=== PATIENT | female | born 1945 | race Caucasian/White ===

== ENCOUNTER → 2016-09-18 | Outpatient (CLI) | payer OTHER | LOC: CIMAGING 09:46 | DX: Z12.31 Encounter for screening mammogram for malignant neoplasm of breast (principal); Z90.11 Acquired absence of right breast and nipple | CPT/HCPCS: G0202-52 ==

== ENCOUNTER 2017-02-20 09:18 | Inpatient (IN) | payer OTHER ==
--- NOTE | 2017-02-14 11:15 | GHP ---
[f rep st] PREOP HISTORY AND PHYSICAL DATE OF ADMISSION: 02/20/2017 DATE OF SURGERY: 02/20/2017 PROBLEM: Left hip arthritis. HISTORY OF PRESENT ILLNESS: The patient is a 71-year-old woman admitted for a left total hip arthrop lasty. Dr. Stephen Fernandes did her right total hip replacement 5 or 10 years ago. She has also had bila teral total knee arthroplasties and bilateral total shoulder arthroplasties. For the past few months , her left hip has become progressively more painful. She is having daily pain and night pain. It i s difficult for her to sleep. She has tried Aleve, but it does not help. Tylenol does not help. Mary Kate castillo cannot take ibuprofen because it upsets her stomach. In 2016, she developed breast cancer on the right side. This was initially treated with a partial ma stectomy. She developed recurrent disease and had to have a full mastectomy, followed by chemotherap y. She continues to be on Herceptin. PAST MEDICAL HISTORY: She is treated for hypertension and hypothyroidism. No history of heart disea se or stents, DVT, or hepatitis. CURRENT MEDICATIONS: Anastrozole, which is an estrogen linn; atenolol 100 mg per day; Lasix 20 mg per day; levothyroxine 100 mcg per day; lisinopril 20 mg per day; metoprolol ER 100 mg per day. DRUG ALLERGIES: Celebrex and Celestone. METAL ALLERGY: None. LATEX ALLERGY: None. SOCIAL HISTORY: The patient is . She does not smoke cigarettes or drink alcohol. She is ret ired. FAMILY HISTORY: Noncontributory. PHYSICAL EXAMINATION: GENERAL: She is an alert, healthy-appearing woman. Height 5 feet 6 inches. Weight 233 pounds. BMI 37.6. EYES: Conjunctivae and sclerae are clear. Pupils are round and react cassandra. She has had cataract surgery, with a lens implant in the right eye. MOUTH: Good oral hygiene. No loose teeth. CHEST: Clear. HEART: Regular rhythm. No murmurs. EXTREMITIES: Pertinent find ings are limited to her left hip. She has full hip extension and 70 degrees of flexion. External ro tation 20 degrees. Internal rotation 0 degrees. Abduction 20 degrees. Hip motion is very painful. She has groin pain. IMAGING STUDIES: Films show a [id number] a right total hip arthroplasty, which looks solid. She has degenerative arthritis of her left hip. She is 2 or 3 mm short on the left. IMPRESSION ON ADMISSION: 1. Left hip degenerative arthritis. Possible avascular necrosis. 2. Status post successful right total hip arthroplasty. 3. Status post bilateral total knee arthroplasties. 4. Status post bilateral total shoulder arthroplasties. 5. History of breast cancer. 6. Treatment for hypertension and hypothyroidism. PLAN: She will undergo a left total hip arthroplasty. The surgery has been described to her, includ ing the risks, complications, expectations, and recovery time. I have talked to her about the risk o f leg length inequality, dislocation, infection, and sciatic nerve injury. All her questions have be en answered, and she consents to surgery. /[id number]/MODL
[~2017-02-20 09:18] MED LIST: POVIDONE-IODINE 20 ML in SODIUM CL IRRIG SOLUTION 500 ML IRR ONE; ROPIVACAINE 0.2% 80 MG, EPINEPHrine 0.2 MG, KETOROLAC TROMETHAMINE 30 MG in BAG 0 ML IU ONE; TRANEXAMIC ACID 2,080 MG in NS 100 ML IV ONE; ceFAZolin 2 GM/DEXTROSE 100 ML IV ONE; ceFAZolin 2 GM/SWFI 2 GM/20 ML SYR IVP ONE
[2017-02-20] MEDS ORDERED: FAMOTIDINE 20 MG TAB PO ONE (09:51)
[2017-02-20] MEDS ORDERED: ACETAMINOPHEN 325 MG TAB PO ONE (09:51)
[2017-02-20] MEDS ORDERED: DEXAMETHASONE 4 MG/ML VIAL IVP ONE (09:51)
[2017-02-20] MEDS ORDERED: LR 1,000 ML IV ONE (09:52)
[2017-02-20] MEDS ORDERED: LIDOCAINE 1% 2 ML INJ ID PRN (09:52)
[2017-02-20] MEDS ORDERED: ceFAZolin 2 GM/SWFI 20 ML SYR IVP ONE (10:30)
--- NOTE | 2017-02-20 11:10 | PDHPUP ---
History & Physical Update H&P update statement: This history and physical update is based on an assessment of the patient which was completed after admission or registration (within 24 hours), but prior to the surgery/procedure. H&P update: H&P reviewed & patient examined, no change in patient's condition since H&P completed
[2017-02-20] MEDS ORDERED: ceFAZolin 1 GM/5 ML SYR ONE (11:22)
[2017-02-20] MEDS ORDERED: BUPIVACAINE 0.25% 30 ML SDV ONE (11:34)
--- NOTE | 2017-02-20 11:43 | PDANEPAE ---
ANE History of Present Illness 71 yo for swetha ANE Past Medical History - Cardiovascular History Hx Hypertension: Yes Hx Arrhythmias: Yes Hx Chest Pain: No Hx Coronary Artery / Peripheral Vascular Disease: No Hx CHF / Valvular Disease: No Hx Palpitations: No Cardiovascular History Comment: SKIPS A BEAT OCCAS. RUNS SLOW HEART RATE. SEEN AT [facility] - Pulmonary History Hx COPD: No Hx Asthma/Reactive Airway Disease: No Hx Recent Upper Respiratory Infection: No Hx Oxygen in Use at Home: No Hx Sleep Apnea: No Sleep Apnea Screening Result - Last Documented: Positive - Neurologic History Hx Cerebrovascular Accident: No Hx Seizures: No Hx Dementia: No - Endocrine History Hx Diabetes: No Endocrine History Comment: HYPOTHYROIDISM - Renal History Hx Renal Disorders: No - Liver History Hx Hepatic Disorders: No Hepatic History Comment: CHOLECYSTECTOMY - Neurological & Psychiatric Hx Hx Neurological and Psychiatric Disorders: No - Cancer History Hx Cancer: Yes Cancer History Comment: R BREAST CA. FINGER & FACE SKIN CA REMOVED - Congenital Disorder History Hx Congenital Disorders: No - GI History Hx Gastrointestinal Disorders: Yes Gastrointestinal History Comment: HX ULCERS FROM NSAIDS. - Other Health History Other Health History: MACULAR DIGENERATION ON RIGHT. MISSING LOWER TOOTH. - Chronic Pain History Chronic Pain: Yes (ARTHRITIS JOINTS & MUSCLE ACHES) - Surgical History Prior Surgeries: EYE SURGERY FOR BUBBLE. DENTAL SURGERIES. 02/21/16 RIGHT MASTECTOMY WITH AXILLARY NODE DISSECTION WITH HAL. R LUMPECTOMY BREAST WITH HAL. HIGINIO SHOULDER REPLACEMENTS. HIGINIO TKA. R SWETHA. ANKLE R SURG. CHOLECYSTECTOMY ANE Review of Systems Review of Systems: - Exercise capacity METS (RN): 4 METS ANE Patient History - Allergies Allergies/Adverse Reactions: hydrocodone bitartrate [From Lortab] Allergy (Severe, Verified 04/09/16 16:09) Other-Enter Comments NSAIDS (Non-Steroidal Anti-Inflamma Allergy (Severe, Verified 04/09/16 16:09) ULCERS betamethasone [From Celestone] Allergy (Verified 04/09/16 16:09) Other-Enter Comments betamethasone sodium phosphate [From Celestone] Allergy (Verified 04/09/16 16:09 ) Other-Enter Comments celecoxib [From Celebrex] Allergy (Verified 04/09/16 16:09) Itching - Home Medications Home medications: home medication list seen and reviewed Home Medications: Levothyroxine [Synthroid 100 mcg (*)] 12/03/09 [Last Taken 04/10/16] Acetaminophen [Tylenol 325mg (*)] 02/21/16 [Last Taken 04/09/16] Herbals/Supplements -Info Only 02/21/16 [Last Taken Unknown] Lisinopril [Zestril 20 mg (*)] 04/09/16 [Last Taken 04/10/16] C/E/Zn/Cu/OM3/DHA/EPA/LUT/ZEAX [Preservision Areds 2 Softgel] 04/11/16 [Last Taken Unknown] Cyanocobalamin [Vitamin B12 (*)] 04/11/16 [Last Taken Unknown] Magnesium Oxide [Magnesium Oxide 400 mg (*)] 04/11/16 [Last Taken Unknown] Vitamin B Complex [B Complex] 04/11/16 [Last Taken Unknown] Anastrozole 02/12/17 [Last Taken Unknown] Herceptin 02/12/17 [Last Taken Unknown] traMADol [Ultram 50 mg (*)] 02/12/17 [Last Taken Unknown] - NPO status NPO Since - Liquids (Date): 02/20/17 NPO Since - Liquids (Time): 08:00 NPO Since - Solids (Date): 02/19/17 NPO Since - Solids (Time): 22:00 - Smoking Hx Smoking Status: Never smoked - Family Anes Hx Family Hx Anesthesia Complications: NONE ANE Labs/Vital Signs - Vital Signs Blood Pressure: 129/70 Heart Rate: 57 Respiratory Rate: 18 O2 Sat (%): 95 Height: 5 ft 6 in Weight: 104.326 kg ANE Physical Exam - Airway Neck exam: FROM Mallampati Score: Class 2 - Pulmonary Pulmonary: no respiratory distress - Cardiovascular Cardiovascular: regular rate and rhythym - ASA Status ASA Status: II ANE Anesthesia Plan Anesthesia Plan: spinal
[2017-02-20] MEDS ORDERED: MIDAZOLAM 2 MG/2 ML VIAL IVP ONE (11:44)
[2017-02-20] MEDS ORDERED: BUPIVACAINE 0.5% 30 ML SDV ONE (11:46)
[2017-02-20] MEDS ORDERED: fentaNYL 100 MCG/2 ML INJ ONE (11:56)
[2017-02-20] MEDS ORDERED: PROPOFOL/EMULSION 500 MG/50 ML BOTTLE IV ONE (12:00)
[2017-02-20] MEDS ORDERED: epHEDrine SULFATE 10 MG/ML SYR ONE ×3 (12:20→12:48)
[2017-02-20] MEDS ORDERED: NALOXONE HCL 0.4 MG/ML INJ IVP PRN (13:29)
[2017-02-20] MEDS ORDERED: fentaNYL 100 MCG/2 ML INJ IVP PRN (13:29)
[2017-02-20] MEDS ORDERED: ONDANSETRON 4 MG/2 ML VIAL IVP PRN ×2 (13:29→13:58)
--- NOTE | 2017-02-20 13:34 | POSTOPPROG ---
Post Op Note Date of Operation: 02/20/17 Surgeon: Adolfo Lyle Foreign Clerk: Shankar Nowak Anesthesia: IV Sedation, Spinal Post-op Diagnosis: Left hip arthritis Procedure: Left total hip arthroplasty Inf/Abcess present in the surg proc area at time of surgery?: No EBL: 100-500
[2017-02-20] MEDS ORDERED: NS 500 ML IV PRN (13:58)
[2017-02-20] MEDS ORDERED: DIPHENOXYLATE/ATROPINE LOMOTIL 1 TAB PO PRN (13:58)
[2017-02-20] MEDS ORDERED: MAGNESIUM HYDROXIDE 30 ML UDCUP PO PRN (13:58)
[2017-02-20] MEDS ORDERED: PROMETHAZINE HCL 25 MG SUPPR PR PRN (13:58)
[2017-02-20] MEDS ORDERED: POLYETHYLENE GLYCOL 3350 17 GM PKT PO PRN (13:58)
[2017-02-20] MEDS ORDERED: LACTULOSE 20 GM/30 ML UDCUP PO PRN (13:58)
[2017-02-20] MEDS ORDERED: PROMETHAZINE HCL 25 MG/ML INJ IVP PRN (13:58)
[2017-02-20] MEDS ORDERED: diphenhydrAMINE 25 MG CAP PO PRN (13:58)
[2017-02-20] MEDS ORDERED: BISACODYL 10 MG SUPP PR PRN (13:58)
[2017-02-20] MEDS ORDERED: METOCLOPRAMIDE 10 MG/2 ML VIAL IVP PRN (13:58)
[2017-02-20] MEDS ORDERED: TEMAZEPAM 15 MG CAP PO PRN (13:58)
--- NOTE | 2017-02-20 14:32 | POSTANESTH ---
Post Anesthetic Evaluation Cardiovascular Status: Normal, Stable Respiratory Status: Normal, Stable Level of Consciousness/Mental Status: Can Participate in Eval Pain Control: Adequate, Prn Tx Ordered Nausea/Vomiting Control: Adequate, Prn Tx Ordered Complications Possibly Related to Anesthesia: None Noted
[2017-02-20] MEDS: ONDANSETRON DISINTEGRATING 4 MG TAB PO PRN (15:29)
[2017-02-20] MEDS: LR 1,000 ML IV SCH (15:29)
--- NOTE | 2017-02-20 15:49 | ASMTCMCOM ---
CM Note CM Note Notes: Pt s/p L SWETHA. PT/OT pending. CM will follow for any d/c needs. Date Signed: 02/20/2017 03:48 PM Electronically Signed By:DEBORAH Woodruff
--- NOTE | 2017-02-20 17:08 | GOP ---
[f rep st] OPERATIVE REPORT DATE OF OPERATION: 02/20/2017 SURGEON: Adolfo Lyle MD UTILITY MANAGER: Fracisco Ortiz and Devan Nowak. ANESTHESIA: Is a combination of Marcaine, spinal, and IV sedation. ANESTHESIOLOGIST: Palmira Medina MD. PREOPERATIVE DIAGNOSIS: Left hip severe degenerative arthritis. POSTOPERATIVE DIAGNOSIS: Left hip severe degenerative arthritis. PROCEDURE PERFORMED: A left total hip arthroplasty, ceramic femoral head on highly cross-linked poly ethylene cup liner. FINDINGS: ESTIMATED BLOOD LOSS: About 400 mL. DESCRIPTION OF PROCEDURE: The patient was given 2 g of Ancef preoperatively within 60 minutes of ama lexy. She also received IV tranexamic acid at a dose of 20 mg/kg. She was placed on the operating r oom table and given spinal anesthesia with Marcaine by Dr. Medina. She was then placed supine and given IV sedation. A Joshua catheter was not used. She wore a JAYCE stocking and SCD on the nonoperati ve leg. She was rolled to the right lateral decubitus position. The position was secured with the p egboard table attachment. An axillary roll was used, and all pressure points were carefully padded. I was careful to lock her pelvis in a rigid vertical position. Her perineum was isolated with plast ic adhesive drapes. The left hip and left lower extremity were prepped with ChloraPrep. They were d raped free using sterile sheets, stockinette, and Ioban plastic drapes. The [employer] time-out was performed to verify the correct surgical side and the [facility] patient identity. The [place] time-out was also performed. I made a 7-inch straight oblique posterolateral hip skin incision. Subcutaneous tissues were sharply divided, and hemostasis was obtained using electrocautery. She was a big woman. Height 5 feet 6 in ches. Weight 233 pounds. BMI 37.6. Her subcutaneous tissue layer was about 2 inches thick. This m amalia exposure more difficult. Her fascia irma was identified and split along the axis of its fibers. I curved posteriorly and proximally, and split the fascia of the gluteus nette and bluntly split t he muscle fibers in line with their orientation. The Charnley self-retaining retractor was inserted. Her sciatic nerve was located, partially exposed, and protected throughout the procedure. The exte rnal rotators and the posterior hip capsule were divided as separate layers at the base of the femora l neck, tagged, and reflected posteriorly. A smooth 8-inch Steinmann pin was inserted vertically int o the ilium, superior to the acetabulum. An 8-inch drill bit was inserted vertically into the greate r trochanter and parallel to the first pin. The distance between the 2 was measured for leg length r eference. Her femoral head was dislocated posteriorly. Severe degenerative changes were present on the femoral head. Her femoral neck was osteotomized at the appropriate level and inclination. I was careful to preserve all the posterior capsule and most of the anterior capsule. The remnant of her damaged labrum was excised. I prepared the femur first. This allowed me to forming department supervisor the amount of natural femoral neck anteversion. This, in turn, allowed me to later determine the correct amount of cup anteversion. She had approx imately 15 degrees of natural femoral neck anteversion. The canal was open 1st laterally with a box chisel. I then reamed and hand broached sequentially up to a size 6 Accolate 2 stem. The size 6 bro ach was used as a trial stem. I was careful to lateralize adequately. Appropriate retractors were inserted to expose the acetabulum. The acetabulum was reamed sequentiall y up to size 51 mm. I selected a 52 mm Jayjay Tritanium cluster hole hemispherical shell. This was tapped securely into place in the proper degree of inclination anteversion. I used the transverse a cetabular ligament and other acetabular bony landmarks to help me properly orient the cup. I inserte d a 30 mm and 25 mm supplemental fixation screws. I also inserted a screw in metal dome hole plug. I performed a series of trial reductions to determine length and stability. I concluded that the siz e 6 stem with a high offset and a -4 mm neck length with a 32 mm head and a 10 degree lipped trial li ner gave me the proper combination of appropriate length and good anterior and posterior stability. She was a few millimeters short preoperatively, and I was intentionally lengthening her. The 10 degree lipped Leopold X3 highly cross-linked polyethylene liner was inserted and tapped secure ly into place. I selected the Leopold Accolade 2 stem and a size 6 with high offset. This was inser jayce press-fit and was a good tight fit. I did 1 final trial reduction and confirmed that the -4 mm n antonio length with a 32 mm head was the proper combination. I selected the Jayjay Biolox Delta ceramic head with an outside diameter of 32 mm and a neck length of -4 mm. This was tapped securely onto th e clean trunnion. The acetabulum was irrigated, cleaned, and the hip was reduced 1 final time. She had excellent anterior and posterior stability and appropriate length. 40 mL of the joint anesthetic cocktail were injected into the capsule, the deep musculature, and the subcutaneous tissues around the skin edges. The joint was thoroughly irrigated 1 final time with a d ilute Betadine solution. Her sciatic nerve was reinspected and looked unharmed. The external rotato rs and the posterior hip capsule were repaired in separate layers with #2 FiberWire sutures through d rill holes in the greater trochanter. This provided a very strong posterior capsular and external ro tator repair. Her fascia irma was closed first with a couple of interrupted [id number] #2 Fiber Wire sutures followed by a running #2 barbed Ethicon Stratafix PDO suture. The subcutaneous tissues were closed with a running 0 barbed Ethicon Stratafix Monoderm suture. The skin was closed with a ru nning 3-0 barbed Ethicon Stratafix Monoderm subcuticular suture. The skin edges were reapproximated and sealed with Dermabond glue. The wound was covered with a strip of Telfa, and everything was held in place with a piece of clear plastic Tegaderm. A long-leg JAYCE stocking and SCD were applied to her left lower extremity. She wore a stocking and SC D on the opposite leg during the procedure. An abduction pillow was placed between her knees. She w as awakened from anesthesia and rolled to the supine position on her [facility]. She was taken to PACU in satisfactory condition. There were no recognized intraoperative complications. COUNTS: The sponge and needle count were correct on 2 occasions. IMPLANTS: I used a Jayjay Tritanium hemispherical press-fit cluster hole acetabular shell with an o utside diameter of 52 mm. I inserted a 30 mm and 25 mm supplemental fixation screws. The liner was a Jayjay X3 10-degree lipped highly cross-linked liner with an inside diameter of 32 mm. The femora l component was a high offset Leopold Accolade 2 stem in size 6 and press-fit. The femoral head was a Jayjay Biolox Delta ceramic head with a -4 mm neck length and a 32 mm outside diameter. Fracisco Ortiz and Devan Nowak acted as surgical assistants. Their assistance was a medical necess ity for safe completion of the procedure. /[id number]/MODL
[2017-02-20] MEDS: ACETAMINOPHEN 325 MG TAB PO SCH ×2 (17:41→22:13)
[2017-02-20] MEDS: oxyCODONE IR 5 MG TAB PO PRN ×2 (17:41→20:42)
[2017-02-20] MEDS: SENNOSIDES/DOCUSATE SODIUM TAB PO SCH (19:27)
[2017-02-20] MEDS: traMADol 50 MG TAB PO PRN (19:27)
[2017-02-20] MEDS: FAMOTIDINE 20 MG TAB PO SCH (19:27)
[2017-02-20] MEDS: ceFAZolin 2 GM/DEXTROSE 100 ML IV SCH (19:28)
[2017-02-20] MEDS: CYCLOBENZAPRINE 10 MG TAB PO PRN (20:42)
[2017-02-20] MEDS: ASPIRIN 325 MG TAB PO SCH (21:00)
[2017-02-21] MEDS: ONDANSETRON DISINTEGRATING 4 MG TAB PO PRN (05:01)
[2017-02-21] MEDS: ceFAZolin 2 GM/DEXTROSE 100 ML IV SCH (05:02)
[2017-02-21] MEDS: LR 1,000 ML IV SCH (05:02)
[2017-02-21] MEDS: oxyCODONE IR 5 MG TAB PO PRN ×3 (05:06→20:37)
[2017-02-21] MEDS: ACETAMINOPHEN 325 MG TAB PO SCH ×3 (05:06→18:47)
[2017-02-21 05:46] LABS: CREATININE 0.9 mg/dL (0.6-1.0); GLOMERULAR FILTRATION RATE > 60
[2017-02-21 06:07] LABS: HEMATOCRIT 51.9 % (38.0-47.0); HEMOGLOBIN 16.9 g/dL (12.6-16.3)
--- NOTE | 2017-02-21 07:12 | SOAPPROG ---
SOAP Progress Note Assessment/Plan: Assessment: Awake and alert. Afebrile. She had quite a bit of pain yesterday but she is more comfortable this morning. Her dressing is dry. Sciatic nerve intact. Hemoglobin and hematocrit are good. Postop films look good. Plan: Up with physical therapy today. Discharged later today. She come to outpatient physical therapy at my office next week. 02/21/17 07:11 Objective: Vital Signs Temp Pulse Resp BP Pulse Ox 36.5 C 59 L 16 111/52 L 97 02/21/17 04:00 02/21/17 04:00 02/21/17 04:00 02/21/17 04:00 02/21/17 04:00 Laboratory Results 02/21/17 04:16 02/21/17 04:16 02/20/17 02/21/17 02/22/17 05:59 05:59 05:59 Intake Total 2525 Output Total 900 Balance 1625 ICD10 Worksheet Patient Problems: Problems Problem Status Onset Osteoarthritis of left hip Acute Breast carcinoma Acute
--- NOTE | 2017-02-21 07:36 | GDS ---
[f rep st] DISCHARGE SUMMARY ADMISSION DIAGNOSIS: Left hip arthritis. DISCHARGE DIAGNOSIS: Left hip arthritis. OPERATION PERFORMED: 02/20/2017, a left total hip arthroplasty. POSTOPERATIVE COMPLICATIONS: None. CONDITION ON DISCHARGE: Improved. DESCRIPTION OF HOSPITAL COURSE: The patient was admitted to the hospital on the morning of surgery. Her admission CBC was normal. Admission BUN and creatinine were 32 and 1.3. The same day, under a combination of Marcaine, spinal, and IV sedation, she underwent a left total hip arthroplasty. Posto peratively, she was treated with multimodal DVT prophylaxis, including aspirin and early mobilization . On the first postoperative day, her hemoglobin and hematocrit were 16.9 and 51.9. She was seen by Physical Therapy and made satisfactory progress with ambulation and stairs. By the time of discharg e, she was afebrile, her wound was clean and dry, and she was independent walking with a walker. DISPOSITION: The patient is discharged to her home. She will go [facility]. She will be 50% weightbearing on the left for the first 3 weeks. Continue JAYCE s tockings for 1 week. Use an abduction pillow in bed for 3 weeks. She has prescriptions for oxycodon e and tramadol for pain control. I will see her back in the office on March 08, 2017. If there a ny problems, she is to call me at the office. /[id number]/MODL
[2017-02-21] MEDS: ASPIRIN 325 MG TAB PO SCH (08:08)
[2017-02-21] MEDS: SENNOSIDES/DOCUSATE SODIUM TAB PO SCH ×2 (08:08→20:36)
[2017-02-21] MEDS: CYCLOBENZAPRINE 10 MG TAB PO PRN ×2 (08:08→18:47)
[2017-02-21] MEDS: FAMOTIDINE 20 MG TAB PO SCH ×2 (08:09→20:37)
[2017-02-21] MEDS: FERROUS SULFATE 140 MG TAB.ER PO SCH (08:09)
--- NOTE | 2017-02-21 15:19 | ASMTCMCOM ---
CM Note CM Note Notes: Spoke with patient and about discharge planning. Explained three options: home independent, home with home care, and SNF. They were not interested in SNF, patient was interested in homecare, and was not interested in any of it. Patient has outpatient PT scheduled for next week. They agreed to revisit the conversation tomorrow after another PT/OT eval. CM will follow. Date Signed: 02/21/2017 03:19 PM Electronically Signed By:Julia Campbell RN
[2017-02-21] MEDS: traMADol 50 MG TAB PO PRN (18:47)
[2017-02-22] MEDS: ACETAMINOPHEN 325 MG TAB PO SCH ×5 (02:21→23:33)
[2017-02-22] MEDS: oxyCODONE IR 5 MG TAB PO PRN (03:51)
[2017-02-22] MEDS: traMADol 50 MG TAB PO PRN ×2 (04:21→20:50)
[2017-02-22 05:34] LABS: HEMOGLOBIN 8.9 g/dL (12.6-16.3)
[2017-02-22 05:45] LABS: GLOMERULAR FILTRATION RATE 55
[2017-02-22] MEDS: ASPIRIN 325 MG TAB PO SCH (10:55)
[2017-02-22] MEDS: FAMOTIDINE 20 MG TAB PO SCH ×2 (10:55→20:50)
[2017-02-22] MEDS: FERROUS SULFATE 140 MG TAB.ER PO SCH (10:56)
[2017-02-22] MEDS: SENNOSIDES/DOCUSATE SODIUM TAB PO SCH ×2 (10:56→20:48)
--- NOTE | 2017-02-22 15:04 | ASMTCMCOM ---
CM Note CM Note Notes: DC poc still likely HHC if pt and agreeable. She initially tolerated PT today but then BP decreased and became symptomatic. PT said may possibly need SNF. Will see how pt does tomorrow with PT and plan accordingly. Pt lives at home w/. CM will follow. Date Signed: 02/22/2017 03:03 PM Electronically Signed By:Tawnya Kruse RN
--- NOTE | 2017-02-22 19:56 | SOAPPROG ---
SOAP Progress Note Assessment/Plan: Assessment: POD #2 s/p L SWETHA Awake, alert, afebrile. Continued symptomatic hypotension with activity. H/H noted. Likely reason for hypotension. Not cleared for home by PT/OT. Plan: Cancel d/c order. Keep overnight. Recheck H/H tomorrow. Cont PT/OT. Consider SNF if unable to progress tomorrow. 02/22/17 19:53 Objective: Vital Signs Temp Pulse Resp BP Pulse Ox 36.8 C 81 13 126/63 H 90 L 02/22/17 19:48 02/22/17 19:48 02/22/17 19:48 02/22/17 19:48 02/22/17 19:48 Laboratory Results 02/22/17 04:18 02/22/17 04:18 02/21/17 02/22/17 02/23/17 05:59 05:59 05:59 Intake Total 2525 1650 Output Total 900 1300 Balance 1625 350 ICD10 Worksheet Patient Problems: Problems Problem Status Onset Osteoarthritis of left hip Acute Breast carcinoma Acute
[2017-02-22] MEDS ORDERED: METOPROLOL SUCCINATE XR 100 MG TAB PO SCH (21:00)
[2017-02-22] MEDS ORDERED: MAGNESIUM OXIDE 400 MG TAB PO SCH (21:00)
[2017-02-23] MEDS: ACETAMINOPHEN 325 MG TAB PO SCH ×2 (06:11→12:31)
[2017-02-23 07:05] LABS: HEMATOCRIT 25.5 % (38.0-47.0); HEMOGLOBIN 8.4 g/dL (12.6-16.3)
[2017-02-23 08:20] VITALS: O2SAT 94
[2017-02-23] MEDS ORDERED: LISINOPRIL 40 MG TAB PO SCH (09:00)
[2017-02-23] MEDS: FAMOTIDINE 20 MG TAB PO SCH (09:47)
[2017-02-23] MEDS: ASPIRIN 325 MG TAB PO SCH (09:47)
[2017-02-23] MEDS: FERROUS SULFATE 140 MG TAB.ER PO SCH (09:47)
[2017-02-23] MEDS: SENNOSIDES/DOCUSATE SODIUM TAB PO SCH (09:50)
[2017-02-23] MEDS ORDERED: LEVOTHYROXINE 100 MCG TAB PO SCH (10:00)
[2017-02-23 11:02] VITALS: BP 125/74; PULSE 75; RESP 12; TEMP 98.4
--- NOTE | 2017-02-23 11:05 | SOAPPROG ---
SOAP Progress Note Assessment/Plan: Assessment: POD #2 s/p L SWETHA Awake, alert, afebrile. Continued symptomatic hypotension with activity. H/H noted. Likely reason for hypotension. Not cleared for home by PT/OT. Plan: Cancel d/c order. Keep overnight. Recheck H/H tomorrow. Cont PT/OT. Consider SNF if unable to progress tomorrow. 02/22/17 19:53 Assessment: Awake, alert, afebrile. Feeling much better than yesterday. H/H stable since yesterday. No dizzyness with ambulation. Plan: D/c to home later today as long as she is cleared by PT. 02/23/17 11:04 Objective: Vital Signs Temp Pulse Resp BP Pulse Ox 36.9 C 75 12 125/74 H 94 02/23/17 11:00 02/23/17 11:00 02/23/17 11:00 02/23/17 11:00 02/23/17 11:00 Laboratory Results 02/23/17 06:40 02/22/17 04:18 02/22/17 02/23/17 02/24/17 05:59 05:59 05:59 Intake Total 1650 Output Total 1300 Balance 350 ICD10 Worksheet Patient Problems: Problems Problem Status Onset Osteoarthritis of left hip Acute Breast carcinoma Acute
--- NOTE | 2017-02-23 11:13 | PDIAF ---
- Diagnosis Diagnosis: left hip OA Code Status: Full Code - Medication Management Discharge Medications: Medications to Continue on Transfer Levothyroxine [Synthroid 100 mcg (*)] 100 mcg PO DAILY@1000 12/03/09 [Last Taken 02/20/17] Herbals/Supplements -Info Only 1 ea PO DAILY 02/21/16 [Last Taken 02/13/17] Lisinopril [Zestril 20 mg (*)] 40 mg PO DAILY 04/09/16 [Last Taken 02/20/17] C/E/Zn/Cu/OM3/DHA/EPA/LUT/ZEAX [Preservision Areds 2 Softgel] 1 ea PO BID [Last Taken 02/13/17] Magnesium Oxide [Magnesium Oxide 400 mg (*)] 400 mg PO HS 04/11/16 [Last Taken 02/13/17] Anastrozole [Arimidex 1 mg (*)] 1 mg PO DAILY 02/12/17 [Last Taken 02/20/17] Trastuzumab [Herceptin] 150 mg IV Q21D 02/12/17 [Last Taken 02/06/17] traMADol [Ultram 50 mg (*)] 50 mg PO HS PRN 02/12/17 [Last Taken 02/19/17] Metoprolol Succinate 100 mg PO HS 02/20/17 [Last Taken 02/19/17] Acetaminophen [Tylenol 325mg (*)] 650 mg PO Q6HRS tab 02/21/17 [Last Taken Unknown] Aspirin [Aspirin 325 mg (*)] 325 mg PO DAILY tab 02/21/17 [Last Taken Unknown] Ondansetron Odt [Zofran Odt 4 mg (*)] 4 mg PO Q4HRS PRN #15 tab 02/21/17 [Last Taken Unknown] Sennosides/Docusate Sodium [Senokot-S] 1 - 2 tab PO BID tab 02/21/17 [Last Taken Unknown] oxyCODONE IR [Oxycodone Ir (*)] 5 - 10 mg PO Q3HRS PRN #30 tab 02/21/17 [Last Taken Unknown] traMADol [Ultram 50 mg (*)] 50 mg PO Q6HRS PRN #30 tab 02/21/17 [Last Taken Unknown] Discharge Medications: Refer to the Discharge Home Medication list for PRN reason. PICC Care - Routine: N/A - Orders Services needed: Home Care, Physical Therapy (if needed) Home Care Face to Face: I certify that this patient was under my care and that I had the required [id number] encounter meeting the encounter requirements on the discharge day. My findings support the fact that the patient is homebound as defined in Home Care Face to Face Continued: CMS Chapter 7 Medicare Benefits Manual 30.1.1 , The condition of the patient is such that there exists a normal inability to leave home and consequently, leaving home would require a considerable and taxing effort. Diet Recommendation: no restrictions on diet Diet Texture: Regular Texture Diet Joshua: Not applicable Arun Stockings Discontinue Date: 1 week Wound Care Instructions: keep clean and dry. You may shower. Activity/Weight Bearing Restrictions: 50% wt bearing on the left lower extremity x 3 weeks. - Follow Up Care Current Providers and Referrals: Reinaldo Kong MD [Primary Care Provider] - Adolfo Lyle MD [Medical Doctor] -
--- NOTE | 2017-02-23 16:13 | ASDISCHSUM ---
Discharge Information Plan Status:Home with No Needs Medically Cleared to Leave: Discharge Date:02/23/2017 02:50 PM CM D/C Disposition:Home, Routine, Self-Care ADT D/C Disposition:Home Health Service Projected Discharge Date:02/23/2017 02:50 PM Transportation at D/C: Discharge Delay Reason: Follow-Up Date:02/23/2017 02:50 PM Discharge Slot: Final Diagnosis: Placement Information Patient Contact Information Contact Name:PARISH Relationship: Address:[address] [place] [address] City:[facility] Phone: State/Zip Code:[place] [address] Email: Financial Information Financial Class:Medicare Advantage Plans Primary Plan Desc:[facility] ADVANTAGE PLANS Primary Plan Number:[id number] Secondary Plan Desc: Secondary Plan Number: Assessment Information [facility] CM Progress Note CM Note CM Note Notes: Pt s/p L SWETHA. PT/OT pending. CM will follow for any d/c needs. Date Signed: 02/20/2017 03:48 PM Electronically Signed By:DEBORAH Woodruff [facility] CM Progress Note CM Note CM Note Notes: Spoke with patient and about discharge planning. Explained three options: home independent, home with home care, and SNF. They were not interested in SNF, patient was interested in homecare, and was not interested in any of it. Patient has outpatient PT scheduled for next week. They agreed to revisit the conversation tomorrow after another PT/OT eval. CM will follow. Date Signed: 02/21/2017 03:19 PM Electronically Signed By:Julia Campbell, RN [facility] CM Progress Note CM Note CM Note Notes: DC poc still likely HHC if pt and agreeable. She initially tolerated PT today but then BP decreased and became symptomatic. PT said may possibly need SNF. Will see how pt does tomorrow with PT and plan accordingly. Pt lives at home w/. CM will follow. Date Signed: 02/22/2017 03:03 PM Electronically Signed By:Tawnya Kruse RN Intervention Information
--- NOTE | 2017-02-25 18:41 | GDS ---
[f rep st] DISCHARGE SUMMARY ADDENDUM TO DISCHARGE SUMMARY DICTATED ON 02/21/2017 BY ELVIA LYLE MD, ITS #[id number]. HOSPITAL COURSE: The patient required continued hospital care on the second and third postoperative days due to symptomatic orthostatic hypotension and acute blood loss. By the third postop day, , the patient's blood pressure had normalized. Her H and H were stable, and she was asymptomati c when ambulating with Physical Therapy. The patient was discharged to her home. She has a followup a ppointment in [address] Lyle. /[id number]/MODL
== END 2017-02-23 14:50 | disposition home or self-care (01) | DRG 470 ==
LOC: F3N 09:31
PROVIDERS: ADMIT Orthopaedic Surgery; ATTEND Orthopaedic Surgery
PROC: 0SRB04Z Replacement of Left Hip Joint with Ceramic on Polyethylene Synthetic Substitute, Open Approach (ICD-10-PCS; principal; 2017-02-20 11:45)
DX: M16.12 Unilateral primary osteoarthritis, left hip (principal); I95.1 Orthostatic hypotension; I10 Essential (primary) hypertension; E78.5 Hyperlipidemia, unspecified; E03.9 Hypothyroidism, unspecified; Z96.641 Presence of right artificial hip joint; Z96.653 Presence of artificial knee joint, bilateral; Z96.611 Presence of right artificial shoulder joint; Z96.612 Presence of left artificial shoulder joint; Z85.3 Personal history of malignant neoplasm of breast; Z90.11 Acquired absence of right breast and nipple
CPT/HCPCS: 97116-GP; 97161-GP; 97165-GO; 97530-GP; 97535-GO; C1713; G8978-GP-CK; G8979-GP-CI; G8980-GP-CI; G8987-GO-CL; G8988-GO-CI; G8988-GO-CJ; G8989-GO-CI; J0171; J0690; J1100; J1642; J1885; J2250; J2405; J2550; J2704; J2795; J3010

== ENCOUNTER 2017-06-26 08:55 | Emergency (ER) | payer OTHER ==
[2017-06-26] MEDS ORDERED: ONDANSETRON 4 MG/2 ML VIAL IVP ONE ×2 (09:16→10:31)
[2017-06-26 09:23] VITALS: RESP 16
--- NOTE | 2017-06-26 09:25 | EDPHY ---
H & P Time Seen by Provider: 06/26/17 09:19 HPI/ROS: Chief complaint. Chief complaint. Abdominal pain HPI. 71-year-old female with right-sided abdominal pain that began in the middle the night last night. She was well yesterday. The pain is in the right flank and right mid abdomen and described as sharp. It is worse with breathing and with movement. Nausea without vomiting. She has had chronic diarrhea from chemotherapy and it is not worse or different with this pain. Denies urinary symptoms. No fever, chest discomfort, shortness of breath. She had similar symptoms in the middle of the night a month ago and it resolved. No investigation at that point. ROS Constitutional. no fever/chills, no weakness Eyes. no problems with vision ENT. no sore throat, no nasal drainage Cardiovascular. no chest pain Respiratory. no shortness of breath, no cough Abdominal. Right flank and mid abdominal pain with nausea. Chronic diarrhea . no problems urinating MS. no calf pain/swelling, no neck/back pain, no joint pain Skin. no rash Lymph. no swollen glands Neuro. no headache, no dizziness, no difficulty walking or with speech Past Medical/Surgical History: Past medical history hypertension, hypothyroid, orthopedic surgeries, cholecystectomy, breast cancer Social History: , nonsmoker, no alcohol Smoking Status: Never smoked Physical Exam: General Appearance: Alert pleasant well-developed female moderate distress vital signs are stable Eyes: Pupils equal and round no pallor or injection. ENT, Mouth: Mucous membranes are moist. Respiratory: There are no retractions, lungs are clear to auscultation. Cardiovascular: Regular rate and rhythm. Gastrointestinal: Abdomen is soft with point tenderness in the right lateral mid abdomen. No masses. Normal bowel sounds Neurological: Awake and alert, sensory and motor exams grossly normal. Skin: Warm and dry, no rashes. Musculoskeletal: Neck is supple nontender. Extremities symmetrical, full range of motion. Psychiatric: Patient is oriented X 3, there is no agitation. Constitutional: Initial Vital Signs Temperature (C) 36.7 C 06/26/17 09:04 Heart Rate 62 06/26/17 09:04 Respiratory Rate 16 06/26/17 09:04 Blood Pressure 149/99 H 06/26/17 09:04 O2 Sat (%) 91 L 06/26/17 09:04 O2 Delivery Mode Nasal Cannula O2 (L/minute) 2 Allergies/Adverse Reactions: hydrocodone bitartrate [From Lortab] Allergy (Severe, Verified 06/26/17 09:08) Other-Enter Comments NSAIDS (Non-Steroidal Anti-Inflamma Allergy (Severe, Verified 06/26/17 09:08) ULCERS betamethasone [From Celestone] Allergy (Verified 06/26/17 09:08) Other-Enter Comments betamethasone sodium phosphate [From Celestone] Allergy (Verified 06/26/17 09:08 ) Other-Enter Comments celecoxib [From Celebrex] Allergy (Verified 06/26/17 09:08) Itching Home Medications: Medication Instructions Recorded Levothyroxine [Synthroid 100 mcg 100 mcg PO DAILY@1000 12/03/09 (*)] Herbals/Supplements -Info Only 1 ea PO DAILY 02/21/16 Lisinopril [Zestril 20 mg (*)] 40 mg PO DAILY 04/09/16 C/E/Zn/Cu/OM3/DHA/EPA/LUT/ZEAX 1 ea PO BID 04/11/16 [Preservision Areds 2 Softgel] Magnesium Oxide [Magnesium Oxide 400 mg PO HS 04/11/16 400 mg (*)] Anastrozole [Arimidex 1 mg (*)] 1 mg PO DAILY 02/12/17 traMADol [Ultram 50 mg (*)] 50 mg PO HS PRN 02/12/17 Metoprolol Succinate 100 mg PO HS 02/20/17 Acetaminophen [Tylenol 325mg (*)] 650 mg PO Q6HRS tab 02/21/17 Ondansetron Odt [Zofran Odt 4 mg 4 mg PO Q4HRS PRN #15 tab 02/21/17 (*)] Sennosides/Docusate Sodium 1 - 2 tab PO BID tab 02/21/17 [Senokot-S] oxyCODONE IR [Oxycodone Ir (*)] 5 - 10 mg PO Q3HRS PRN #30 tab 02/21/17 traMADol [Ultram 50 mg (*)] 50 mg PO Q6HRS PRN #30 tab 02/21/17 HYDROmorphone HCL [Dilaudid 2 mg 2 mg PO Q4-6PRN PRN #14 tab 06/26/17 (*)] Promethazine HCl [Phenergan 25mg 25 mg PO Q4-6PRN PRN #10 tab 06/26/17 (*)] Medical Decision Making - Diagnostics Imaging Results: Imaging Impressions Abdomen CT 06/26/17 10:15 Impression: 1. Hepatomegaly with widespread right and left hepatic lobe metastases in this patient with prior breast cancer and a prior right mastectomy. 2. Status post cholecystectomy with stable prominence of the common bile duct, tapering at the ampulla. 3. Nonspecific scattered small lymph nodes as above-detailed, not apparent on previous studies in 2013 or 2015. 4. Colonic diverticulosis, without active diverticulitis or mechanical bowel obstruction. 5. Interim development of a sclerotic lesion worrisome for metastasis at the right T7 centrum. 6. Bilateral hip arthroplasties. 7. Small hiatal hernia. 8. LAD and left circumflex coronary artery atherosclerotic calcification with left ventricular hypertrophy. Findings were discussed with ROSA MUNGUIA MD at 12:00 PM, on 06/26/2017. CT scan abdomen pelvis with IV contrast reviewed by me and discussed with Dr. Safia dover with widespread right and left hepatic lobe metastases Procedures: Patient has a port which is accessed. She is given L normal saline. Dilaudid and Zofran for pain and nausea control ED Course/Re-evaluation: Recheck at 10:15 a.m. Patient is stable. Her pain is under control. The patient, her and I discussed lab and urine results. We discussed recommendation for CT scan abdomen for further evaluation of her right-sided abdominal pain. She expresses understanding and agreement Patient had a vomiting episode at about 8:11 a.m. And was treated with further Zofran. Re-evaluation at 12:05 p.m.. Patient is stable. No longer having any nausea or vomiting. She is better but canal tender in the right mid abdomen to palpation. The patient, her , and I discussed imaging and lab results. We discussed treatment plan. I will consult and discuss the case with Dr. Bond her oncologist. The patient was unaware that she had any metastases to her liver. I consulted and discussed case with Dr. Dianelys Canada on-call for Dr. Bond. They will see the patient in the office on Saturday. I discussed this plan with the patient and her . We discussed lab results and the imaging studies. The patient is offered admission but she would like to be treated as an outpatient. She is somewhat nauseated still with sips of fluids. However she would like to be treated as an outpatient. I have encouraged her to return for uncontrolled pain or nausea and vomiting especially with concerns for dehydration Differential Diagnosis: I considered diverticulitis, kidney stone, pyelonephritis. It appears that this is likely due to new metastatic disease to the liver with hepatomegaly. - Data Points Laboratory Results: Laboratory Results 06/26/17 09:20 06/26/17 09:20 06/26/17 06/26/17 06/26/17 09:20 09:20 09:20 WBC 8.63 10^3/uL 10^3/uL (3.80-9.50) RBC 4.50 10^6/uL 10^6/uL (4.18-5.33) Hgb 13.0 g/dL g/dL (12.6-16.3) Hct 39.9 % % (38.0-47.0) MCV 88.7 fL fL (81.5-99.8) MCH 28.9 pg pg (27.9-34.1) MCHC 32.6 g/dL g/dL (32.4-36.7) RDW 16.5 % H % (11.5-15.2) Plt Count 371 10^3/uL 10^3/uL (150-400) MPV 9.1 fL fL (8.7-11.7) Neut % (Auto) 79.6 % H % (39.3-74.2) Lymph % (Auto) 11.2 % L % (15.0-45.0) [place] % (Auto) 8.2 % % (4.5-13.0) Eos % (Auto) 0.5 % L % (0.6-7.6) Baso % (Auto) 0.3 % % (0.3-1.7) Nucleat RBC Rel Count 0.0 % % (0.0-0.2) Absolute Neuts (auto) 6.86 10^3/uL H 10^3/uL (1.70-6.50) Absolute Lymphs (auto) 0.97 10^3/uL L 10^3/uL (1.00-3.00) Absolute Monos (auto) 0.71 10^3/uL 10^3/uL (0.30-0.80) Absolute Eos (auto) 0.04 10^3/uL 10^3/uL (0.03-0.40) Absolute Basos (auto) 0.03 10^3/uL 10^3/uL (0.02-0.10) Absolute Nucleated RBC 0.00 10^3/uL 10^3/uL (0-0.01) Immature Gran % 0.2 % % (0.0-1.1) Immature Gran # 0.02 10^3/uL 10^3/uL (0.00-0.10) Sodium 139 mEq/L mEq/L (135-145) Potassium 4.7 mEq/L mEq/L (3.5-5.2) Chloride 101 mEq/L mEq/L (97-110) Carbon Dioxide 23 mEq/l mEq/l (22-31) Anion Gap 15 mEq/L mEq/L (8-16) BUN 20 mg/dL mg/dL (7-23) Creatinine 1.0 mg/dL mg/dL (0.6-1.0) Estimated GFR 55 Glucose 108 mg/dL H mg/dL (70-100) Calcium 9.0 mg/dL mg/dL (8.5-10.4) Total Bilirubin 1.1 mg/dL mg/dL (0.1-1.4) Conjugated Bilirubin 0.4 mg/dL mg/dL (0.0-0.5) Unconjugated Bilirubin 0.7 mg/dL mg/dL (0.0-1.1) AST 166 IU/L H IU/L (14-46) ALT 148 IU/L H IU/L (9-52) Alkaline Phosphatase 501 IU/L H IU/L (38-126) Total Protein 7.4 g/dL g/dL (6.3-8.2) Albumin 3.6 g/dL g/dL (3.5-5.0) Lipase 133 IU/L IU/L (23-300) Urine Color Urine Appearance Urine pH Ur Specific Dierks Urine Protein Urine Ketones Urine Blood Urine Nitrate Urine Bilirubin Urine Urobilinogen Ur Leukocyte Esterase Urine RBC Urine WBC Ur Epithelial Cells Urine Crystals Sodium Urate Crystals Urine Bacteria Urine Yeast Urine Glucose 06/26/17 09:20 WBC RBC Hgb Hct MCV MCH MCHC RDW Plt Count MPV Neut % (Auto) Lymph % (Auto) [place] % (Auto) Eos % (Auto) Baso % (Auto) Nucleat RBC Rel Count Absolute Neuts (auto) Absolute Lymphs (auto) Absolute Monos (auto) Absolute Eos (auto) Absolute Basos (auto) Absolute Nucleated RBC Immature Gran % Immature Gran # Sodium Potassium Chloride Carbon Dioxide Anion Gap BUN Creatinine Estimated GFR Glucose Calcium Total Bilirubin Conjugated Bilirubin Unconjugated Bilirubin AST ALT Alkaline Phosphatase Total Protein Albumin Lipase Urine Color YELLOW Urine Appearance HAZY Urine pH 7.0 (5.0-7.5) Ur Specific Dierks 1.015 (1.002-1.030) Urine Protein NEGATIVE (NEGATIVE) Urine Ketones NEGATIVE (NEGATIVE) Urine Blood NEGATIVE (NEGATIVE) Urine Nitrate NEGATIVE (NEGATIVE) Urine Bilirubin NEGATIVE (NEGATIVE) Urine Urobilinogen 0.2 EU EU (0.2-1.0) Ur Leukocyte Esterase TRACE H (NEGATIVE) Urine RBC 0-1 /hpf /hpf (0-3) Urine WBC 1-3 /hpf /hpf (0-3) Ur Epithelial Cells 2+ /lpf H /lpf (NONE-1+) Urine Crystals TRACE /hpf H /hpf (NONE SEEN) Sodium Urate Crystals TRACE /hpf /hpf (NONE-1+) Urine Bacteria 3+ /hpf H /hpf (NONE SEEN) Urine Yeast OCCASIONAL /hpf H /hpf (NONE SEEN) Urine Glucose NEGATIVE (NEGATIVE) Medications Given: Discontinued Medications Hydromorphone HCl (Dilaudid) 0.5 mg IVP EDNOW ONE Stop: 06/26/17 09:34 Last Admin: 06/26/17 09:42 Dose: 0.5 mg Sodium Chloride (Ns) 1,000 mls @ 0 mls/hr IV ONCE ONE PRN Reason: Wide Open Stop: 06/26/17 09:34 Last Admin: 06/26/17 09:40 Dose: 1,000 mls Ondansetron HCl (Zofran) 4 mg IVP EDNOW ONE Stop: 06/26/17 09:17 Last Admin: 06/26/17 09:21 Dose: 4 mg Ondansetron HCl (Zofran) 4 mg IVP EDNOW ONE Stop: 06/26/17 10:32 Last Admin: 06/26/17 10:35 Dose: 4 mg Departure - Departure Disposition: Home, Routine, Self-Care Clinical Impression: Abdominal pain Qualifiers: Abdominal location: right upper quadrant Qualified Code(s): R10.11 - Right upper quadrant pain Condition: Good Instructions: Acute Abdominal Pain (ED) Additional Instructions: Continue regular medications with 2 exceptions. Substitute Dilaudid for the tramadol (Ultram) for pain control. Substitute Phenergan as a nausea medication for the Zofran. You may still use Zofran with the Phenergan to help with nausea and vomiting Dr. Bond's office will call you to help arrange an appointment to see Dr. Bond on Saturday Return for worsening pain, fever, vomiting, concerns for dehydration Referrals: Reinaldo Kong MD [Primary Care Provider] - As per Instructions Jen Bond MD [Medical Doctor] - 1-2 days without fail Prescriptions: HYDROmorphone HCL [Dilaudid 2 mg (*)] 2 mg PO Q4-6PRN PRN #14 tab PRN Reason: Pain, Moderate Promethazine HCl [Phenergan 25mg (*)] 25 mg PO Q4-6PRN PRN #10 tab PRN Reason: Nausea/Vomiting, Use 1st
[2017-06-26] MEDS ORDERED: NS 1,000 ML IV ONE (09:33)
[2017-06-26] MEDS ORDERED: HYDROmorphONE/DILAUDID 1 MG/ML INJ IVP ONE (09:33)
[2017-06-26 09:45] LABS: PLATELET COUNT 371 10^3/uL (150-400)
[2017-06-26] MEDS ORDERED: IOPAMIDOL (ISOVUE-300) 100 ML BTL ONE (10:25)
[2017-06-26 11:34] VITALS: TEMP 97.9
[2017-06-26 13:17] VITALS: O2SAT 93
[2017-06-26 13:51] VITALS: BP 148/72; PULSE 50
== END 2017-06-26 13:51 | disposition home or self-care (01) ==
LOC: CED 08:55
DX: R10.11 Right upper quadrant pain (principal); I10 Essential (primary) hypertension; R19.7 Diarrhea, unspecified; Z85.3 Personal history of malignant neoplasm of breast
CPT/HCPCS: 74177; 96361; 96374; 96375; 96376; 99285; J1170; J1642; J2405; Q9967; 80048-PO; 80076-PO; 81003-PO; 81015-PO; 83690-PO; 85025-PO

== ENCOUNTER 2017-07-04 08:34 | Outpatient (CLI) | payer OTHER ==
[2017-07-04] MEDS ORDERED: GLUCAGON HCL 1 MG VIAL IVP PRN (08:44)
[2017-07-04] MEDS ORDERED: HEPARIN 10,000 UNIT/10 ML MDV (1,000 UNIT/ML) IVP PRN (08:44)
[2017-07-04] MEDS ORDERED: NALOXONE HCL 0.4 MG/ML INJ IVP PRN (08:44)
[2017-07-04] MEDS ORDERED: fentaNYL 100 MCG/2 ML INJ IVP PRN (08:44)
[2017-07-04] MEDS ORDERED: MIDAZOLAM 2 MG/2 ML VIAL IVP PRN (08:44)
[2017-07-04] MEDS ORDERED: PROTAMINE SULFATE 50 MG/5 ML VIAL IVP PRN (08:44)
[2017-07-04] MEDS ORDERED: MEPERIDINE 25 MG/ML SYR IVP PRN (08:44)
[2017-07-04] MEDS ORDERED: FLUMAZENIL 0.5 MG/5 ML MDV IVP PRN (08:44)
[2017-07-04] MEDS ORDERED: ALTEPLASE 2 MG VIAL IVP PRN (08:44)
[2017-07-04] MEDS ORDERED: NS 1,000 ML IV SCH (08:45)
[2017-07-04] MEDS ORDERED: LIDOCAINE 1% 300 MG/30 ML SDV ONE (09:28)
[2017-07-04] MEDS ORDERED: BUPIVACAINE 0.25% 30 ML SDV ONE (09:59)
[2017-07-04 10:04] VITALS: RESP 16
[2017-07-04] MEDS ORDERED: MIDAZOLAM 2 MG/2 ML VIAL ONE (10:26)
[2017-07-04] MEDS ORDERED: fentaNYL 100 MCG/2 ML INJ ONE (10:26)
[2017-07-04] MEDS ORDERED: ONDANSETRON 4 MG/2 ML VIAL ONE (10:26)
--- NOTE | 2017-07-04 10:54 | PDPROPOC ---
Sedation Plan of Care Sedation Plan of Care: vital signs stable, mental status noted, patient educated of risks, benefits, alternatives, patient can tolerate sedation ASA Classification: ASA 2 Planned drugs: fentanyl, midazolam Mallampati Score: Class 2 Mallampati Reference Image: Patient passed 3-3-2 rule?: Yes
--- NOTE | 2017-07-04 10:55 | PDGENHP ---
History & Physical Chief Complaint: liver masses History of Present Illness: h/o breast cancer. possible metastasis. Cardiorespiratory Assessment: Clear lungs. RRR
[2017-07-04] MEDS ORDERED: oxyCODONE IR 5 MG TAB PO PRN (11:52)
[2017-07-04] MEDS ORDERED: ONDANSETRON 4 MG/2 ML VIAL IVP PRN (11:52)
[2017-07-04 12:23] VITALS: PULSE 52; TEMP 97.5
[2017-07-04 14:47] VITALS: BP 152/84; O2SAT 96
== END 2017-07-04 15:15 | disposition home or self-care (01) ==
LOC: FIMAGING 08:34
PROVIDERS: ATTEND Internal Medicine Hematology & Oncology
PROC: 0FB03ZX Excision of Liver, Percutaneous Approach, Diagnostic (ICD-10-PCS; principal; 2017-07-04 12:19)
DX: C78.7 Secondary malignant neoplasm of liver and intrahepatic bile duct (principal); C50.919 Malignant neoplasm of unspecified site of unspecified female breast
CPT/HCPCS: 47000; 76942; 88307; 88341; 88342; 88360; 88361; 99152; J1642; J2250; J2405; J3010

== ENCOUNTER → 2017-07-05 | Outpatient (CLI) | payer OTHER ==
[~2017-07-05] MED LIST changes: +GADOBUTROL 10 ML VIAL IVP ONE; -POVIDONE-IODINE 20 ML in SODIUM CL IRRIG SOLUTION 500 ML IRR ONE; -ROPIVACAINE 0.2% 80 MG, EPINEPHrine 0.2 MG, KETOROLAC TROMETHAMINE 30 MG in BAG 0 ML IU ONE; -TRANEXAMIC ACID 2,080 MG in NS 100 ML IV ONE; -ceFAZolin 2 GM/DEXTROSE 100 ML IV ONE; -ceFAZolin 2 GM/SWFI 2 GM/20 ML SYR IVP ONE
== END ==
LOC: FIMAGING 08:20
PROVIDERS: ATTEND Internal Medicine Hematology & Oncology
DX: R94.02 Abnormal brain scan (principal); R90.82 White matter disease, unspecified; C78.7 Secondary malignant neoplasm of liver and intrahepatic bile duct; C50.211 Malignant neoplasm of upper-inner quadrant of right female breast
CPT/HCPCS: 70553; A9585; J1642

== ENCOUNTER 2017-11-03 10:14 | Emergency (ER) | payer OTHER ==
--- NOTE | 2017-11-03 11:03 | EDPHY ---
H & P Stated Complaint: "allergy to morphine", sore throat, numb tounge Time Seen by Provider: 11/03/17 10:39 HPI/ROS: Chief Complaint: Throat pain, tongue numb, possible medication reaction HPI: 72-year-old woman with a history of metastatic breast cancer, last chemotherapy 2 days ago. Patient was started on morphine for pain control of her abdominal and back pain. Her 1st dose was on Saturday. She says over the last 2 days she has been having worsening sore throat and numbness in her tongue. She is able to swallow. No difficulty breathing. No fevers or chills. She has never had a similar reaction in the past. ROS: 10 point Review of Systems is negative except as noted in the HPI. PMH: Metastatic breast cancer Social History: No smoking, no alcohol, no recreational drug use Family History: non-contributory Physical Exam: Gen: Awake, Alert, No Distress HEENT: Nose: no rhinorrhea Eyes: PERRLA, EOMI Mouth: Moist mucosa mild oropharyngeal erythema, no edema Neck: Supple, no JVD Chest: nontender, lungs clear to auscultation Heart: S1, S2 normal, no murmur Abd: Soft, non-tender, no guarding Back: no CVA tenderness, no midline tenderness Ext: no edema, non-tender Skin: no rash Neuro: CN II-XII intact, Sensation grossly intact, Strength 5/5 in bilateral upper and lower extremities - Personal History Current Tetanus/Diphtheria Vaccine: Yes Tetanus Vaccine Date: 01/2010 - Medical/Surgical History Hx Asthma: No Hx Chronic Respiratory Disease: No Hx Diabetes: No Hx Cardiac Disease: No Hx Renal Disease: No Hx Cirrhosis: No Hx Alcoholism: No Hx HIV/AIDS: No Hx Splenectomy or Spleen Trauma: No Other PMH: htn,hypothyroid. surg-2knee,2 shoulder,chandu,achilles tendon,rt hip , breast. cancer - Social History Smoking Status: Never smoked Constitutional: Initial Vital Signs Temperature (C) 36.3 C 11/03/17 10:21 Heart Rate 88 11/03/17 10:21 Respiratory Rate 18 11/03/17 10:21 Blood Pressure 97/58 L 11/03/17 10:21 O2 Sat (%) 93 11/03/17 10:21 O2 Delivery Mode Nasal Cannula O2 (L/minute) 1.5 Allergies/Adverse Reactions: hydrocodone bitartrate [From Lortab] Allergy (Severe, Verified 11/03/17 10:27) Other-Enter Comments NSAIDS (Non-Steroidal Anti-Inflamma Allergy (Severe, Verified 11/03/17 10:27) ULCERS betamethasone [From Celestone] Allergy (Verified 11/03/17 10:27) Other-Enter Comments betamethasone sodium phosphate [From Celestone] Allergy (Verified 11/03/17 10:27 ) Other-Enter Comments celecoxib [From Celebrex] Allergy (Verified 11/03/17 10:27) Itching morphine Allergy (Verified 11/03/17 10:27) morphine Allergy (Uncoded 11/03/17 10:27) Home Medications: Medication Instructions Recorded Levothyroxine [Synthroid 100 mcg 100 mcg PO DAILY@1000 12/03/09 (*)] Herbals/Supplements -Info Only 1 ea PO DAILY 02/21/16 Lisinopril [Zestril 20 mg (*)] 40 mg PO DAILY 04/09/16 C/E/Zn/Cu/OM3/DHA/EPA/LUT/ZEAX 1 ea PO BID 04/11/16 [Preservision Areds 2 Softgel] Magnesium Oxide [Magnesium Oxide 400 mg PO HS 04/11/16 400 mg (*)] Metoprolol Succinate 100 mg PO HS 02/20/17 oxyCODONE IR [Oxycodone Ir (*)] 5 - 10 mg PO Q3HRS PRN #30 tab 02/21/17 traMADol [Ultram 50 mg (*)] 50 mg PO Q6HRS PRN #30 tab 02/21/17 HYDROmorphone HCL [Dilaudid 2 mg 2 mg PO Q4-6PRN PRN #14 tab 06/26/17 (*)] Promethazine HCl [Phenergan 25mg 25 mg PO Q4-6PRN PRN #10 tab 06/26/17 (*)] Medical Decision Making - Diagnostics Imaging Results: Imaging Impressions Soft Tissue Neck X-Ray 11/03/17 10:58 Impression: Cervical soft tissues negative for acute abnormality. ED Course/Re-evaluation: 72-year-old with sore throat and numbness in her mouth after starting morphine. Soft tissue neck x-rays negative. Strep screen is negative. I have discussed with Dr. Jones, oncology. He agrees with the plan to start the patient on a fentanyl patch. She will discontinue morphine. Follow up with Oncology tomorrow. I do not see any evidence of acute abscess or airway obstruction at this time. Patient's pain is controlled. - Data Points Laboratory Results: 11/03/17 11/03/17 Unknown 11:00 Group A Strep Screen NEGATIVE (NEGATIVE) Group A Strep DNA Pending Departure - Departure Disposition: Home, Routine, Self-Care Clinical Impression: Throat pain Condition: Good Instructions: Tonsillitis (ED) Additional Instructions: Leave the fentanyl patch in place. Follow up with your oncologist tomorrow. Return to the emergency department for difficulty breathing, difficulty swallowing, fevers, or any other concerns. Referrals: Jen Bond MD [Medical Doctor] - As per Instructions
[2017-11-03] MEDS ORDERED: fentaNYL 12 MCG PATCH TD ONE (12:30)
[2017-11-03 12:53] VITALS: BP 107/79
== END 2017-11-03 12:53 | disposition home or self-care (01) ==
DX: R07.0 Pain in throat (principal); I10 Essential (primary) hypertension

== ENCOUNTER → 2018-01-27 | Outpatient (CLI) | payer OTHER ==
[~2018-01-27] MED LIST changes: -GADOBUTROL 10 ML VIAL IVP ONE; +LIDOCAINE 1% 300 MG/30 ML SDV ONE
== END ==
LOC: FIMAGING 12:06
PROVIDERS: ATTEND Nurse Practitioner
PROC: 0W9G3ZZ Drainage of Peritoneal Cavity, Percutaneous Approach (ICD-10-PCS; principal; 2018-01-27)
DX: R18.8 Other ascites (principal); C50.211 Malignant neoplasm of upper-inner quadrant of right female breast

== ENCOUNTER → 2018-02-11 | Outpatient (CLI) | payer OTHER | LOC: FIMAGING 09:39 | PROVIDERS: ATTEND Physician Assistant | DX: R18.8 Other ascites (principal); C50.919 Malignant neoplasm of unspecified site of unspecified female breast ==

== ENCOUNTER → 2018-04-21 | Outpatient (CLI) | payer OTHER ==
[~2018-04-21] MED LIST changes: +ALBUMIN 25% 100 ML SOLN IV ONE
== END ==
LOC: FIMAGING 13:26
PROVIDERS: ATTEND Internal Medicine Hematology & Oncology
PROC: 0W9G3ZZ Drainage of Peritoneal Cavity, Percutaneous Approach (ICD-10-PCS; principal; 2018-04-21)
DX: C50.211 Malignant neoplasm of upper-inner quadrant of right female breast (principal); R18.0 Malignant ascites
CPT/HCPCS: 49083; J1642; P9047

== ENCOUNTER 2018-04-25 12:54 | Day surgery (SDC) | payer OTHER ==
[2018-04-25] MEDS ORDERED: MEPERIDINE 25 MG/ML SYR IVP PRN (13:41)
[2018-04-25] MEDS ORDERED: GLUCAGON HCL 1 MG VIAL IVP PRN (13:41)
[2018-04-25] MEDS ORDERED: NALOXONE HCL 0.4 MG/ML INJ IVP PRN (13:41)
[2018-04-25] MEDS ORDERED: PROTAMINE SULFATE 50 MG/5 ML VIAL IVP PRN (13:41)
[2018-04-25] MEDS ORDERED: ceFAZolin 2 GM/DEXTROSE 100 ML IV ONE (13:41)
[2018-04-25] MEDS ORDERED: MIDAZOLAM 2 MG/2 ML VIAL IVP PRN (13:41)
[2018-04-25] MEDS ORDERED: fentaNYL 100 MCG/2 ML INJ IVP PRN (13:41)
[2018-04-25] MEDS ORDERED: HEPARIN 10,000 UNIT/10 ML MDV (1,000 UNIT/ML) IVP PRN (13:41)
[2018-04-25] MEDS ORDERED: FLUMAZENIL 0.5 MG/5 ML MDV IVP PRN (13:41)
[2018-04-25] MEDS ORDERED: ALTEPLASE 2 MG VIAL IVP PRN (13:41)
[2018-04-25] MEDS ORDERED: NS 1,000 ML IV SCH (13:45)
--- NOTE | 2018-04-25 14:09 | PDPROPOC ---
Sedation Plan of Care ASA Classification: ASA 3 Mallampati Score: Class 2 Mallampati Reference Image:
--- NOTE | 2018-04-25 14:09 | PDRADPRE ---
Radiology History & Physical Indication for procedure: cancer Home medications: Levothyroxine [Synthroid 100 mcg (*)] 100 mcg PO DAILY@1000 12/03/09 [Last Taken 04/23/18] C/E/Zn/Cu/OM3/DHA/EPA/LUT/ZEAX [Preservision Areds 2 Softgel] 1 ea PO BID [Last Taken 04/23/18] Magnesium Oxide [Magnesium Oxide 400 mg (*)] 400 mg PO HS 04/11/16 [Last Taken 04/22/18] Omeprazole 20 mg PO DAILY PRN 11/06/17 [Last Taken 04/22/18] Ondansetron HCl [Zofran] 8 mg PO Q8HRS PRN 11/06/17 [Last Taken 04/16/18] Prochlorperazine Maleate [Compazine 10mg (*)] 10 mg PO Q6HRS PRN 11/06/17 [Last Taken 04/16/18] Lasix 20 MG (*) 40 mg PO DAILY 04/23/18 [Last Taken 04/23/18] Allergies/Adverse Reactions: hydrocodone bitartrate [From Lortab] Allergy (Severe, Verified 11/03/17 10:27) Other-Enter Comments betamethasone Allergy (Unknown, Unverified 11/15/17 16:05) Other-Enter Comments celecoxib Allergy (Unknown, Unverified 11/15/17 16:05) Itching NSAIDS (Non-Steroidal Anti-Inflamma [NSAIDS (Non-Steroidal Anti-Inflammatory Drug)] Allergy (Unknown, Unverified 11/15/17 16:05) ULCERS betamethasone sodium phosphate [From Celestone] Allergy (Verified 11/03/17 10:27 ) Other-Enter Comments betamethasone sodium phosphate Allergy (Unknown, Uncoded 11/15/17 16:05) Other-Enter Comments hydrocodone bitartrate Allergy (Unknown, Uncoded 11/15/17 16:05) Other-Enter Comments Mental status: A&Ox3
[2018-04-25] MEDS ORDERED: FLUMAZENIL 0.5 MG/5 ML MDV IVP ONE (15:16)
[2018-04-25] MEDS ORDERED: NALOXONE HCL 0.4 MG/ML INJ ONE (15:16)
[2018-04-25] MEDS ORDERED: MIDAZOLAM 2 MG/2 ML VIAL ONE (15:16)
[2018-04-25] MEDS ORDERED: fentaNYL 100 MCG/2 ML INJ ONE (15:17)
[2018-04-25] MEDS ORDERED: ACETAMINOPHEN 325 MG TAB PO PRN (16:14)
[2018-04-25] MEDS ORDERED: ONDANSETRON 4 MG/2 ML VIAL IVP PRN (16:14)
[2018-04-25] MEDS ORDERED: ALBUMIN 25% 100 ML SOLN IV ONE (16:27)
[2018-04-25 18:20] VITALS: BP 123/77
== END 2018-04-25 18:17 | disposition home or self-care (01) ==
LOC: FIMAGING 12:54
PROVIDERS: ATTEND Radiology Diagnostic Radiology
DX: C50.211 Malignant neoplasm of upper-inner quadrant of right female breast (principal); R18.8 Other ascites
CPT/HCPCS: C2617; J1642; J2250; J2310; J3010; P9047

== ENCOUNTER 2018-05-01 13:57 | Observation (INO) | payer OTHER ==
--- NOTE | 2018-05-01 14:16 | EDPHY ---
H & P Time Seen by Provider: 05/01/18 14:04 HPI/ROS: CHIEF COMPLAINT: Low blood pressure HISTORY OF PRESENT ILLNESS: 72-year-old woman with metastatic breast cancer with liver metastases presents with abnormal labs low blood pressure from the [facility] office. Patient presented today with fatigue to the [facility] office. She is been undergoing chemotherapy and has decreased blood pressure and elevated liver function test. Decreased oral intake. Denies fever or chills, cough or sore throat, dental pain, headache or stiff neck, vomiting or diarrhea, urinary symptoms. REVIEW OF SYSTEMS: Eye: no change in vision ENT: Tooth pulled yesterday, no jaw or dental pain today Cardiac: no chest pain or syncope Pulmonary: no cough or SOB Abdomen: no vomiting, diarrhea, abdominal pain. Decreased oral intake. Musculoskeletal: no back pain Skin: no rash Neuro: no headache Constitutional: no fever : no urinary symptoms A comprehensive 10 point review of systems is otherwise negative aside from elements mentioned in the history of present illness. PAST MEDICAL HISTORY: Includes breast cancer as above, also hypothyroid, upper GI bleed, knee and hip arthroplasties, cholecystectomy, hypertension. Social history: Here with spouse, [facility] patient General Appearance: Alert and conversant, cooperative. Eyes: Slightly icteric. ENT, Mouth: Dry mucous membranes. Respiratory: Normal respiratory effort, breath sounds equal, lungs are clear to auscultation. Cardiovascular: Regular rate and rhythm. Gastrointestinal: Abdomen is soft and non tender. [place] drain on the right side examined is clean dry and intact without redness or pus. Neurological: Alert, face symmetric, normal motor and sensory in extremities. Skin: Warm and dry, no rashes. Musculoskeletal: Bilateral 2+ peripheral edema. Psychiatric: Not agitated. Emergency Department course/MDM: Labs today drawn at the office include WBC 12.6, hematocrit 40, platelet count 366. 84% neutrophils. Sodium 131, BUN and creatinine 37 and 1.4, total bilirubin 2.8, AST 492, ALT 225, alkaline phosphatase 852. Reaction for chemotherapy, dehydration, sepsis , common duct stone all considered. Afebrile, does not have signs or symptoms of infection, would consider dehydration to be more likely. Creatinine is up to 1.4 from a baseline closer to 1.0 or 1.1. Blood cultures x2, IV fluids, chest x-ray and urinalysis, admission for monitoring. Smoking Status: Never smoked Constitutional: Initial Vital Signs Temperature (C) 36.8 C 05/01/18 14:05 Heart Rate 84 05/01/18 14:05 Respiratory Rate 13 05/01/18 14:05 Blood Pressure 123/95 H 05/01/18 14:05 O2 Sat (%) 95 05/01/18 14:05 O2 Delivery Mode Room Air Allergies/Adverse Reactions: hydrocodone bitartrate [From Lortab] Allergy (Severe, Verified 05/01/18 14:56) Other-Enter Comments betamethasone Allergy (Unknown, Unverified 11/15/17 16:05) Other-Enter Comments betamethasone sodium phosphate [From Celestone] Allergy (Unknown, Verified 05/01 14:57) Other-Enter Comments celecoxib Allergy (Unknown, Unverified 11/15/17 16:05) Itching NSAIDS (Non-Steroidal Anti-Inflamma [NSAIDS (Non-Steroidal Anti-Inflammatory Drug)] Allergy (Unknown, Unverified 11/15/17 16:05) ULCERS betamethasone sodium phosphate Allergy (Unknown, Uncoded 11/15/17 16:05) Other-Enter Comments hydrocodone bitartrate Allergy (Unknown, Uncoded 11/15/17 16:05) Other-Enter Comments Home Medications: Medication Instructions Recorded Levothyroxine [Synthroid 100 mcg 100 mcg PO DAILY06 12/03/09 (*)] C/E/Zn/Cu/OM3/DHA/EPA/LUT/ZEAX 1 ea PO BID 04/11/16 [Preservision Areds 2 Softgel] Magnesium Oxide [Magnesium Oxide 400 mg PO HS 04/11/16 400 mg (*)] oxyCODONE IR [Oxycodone Ir (*)] 5 mg PO Q3-4PRN PRN #10 tab 11/15/17 Furosemide [Lasix 20 MG (*)] 20 mg PO DAILY 04/23/18 Calcium Carbonate [Oyster Shell 500 mg PO DAILY 05/01/18 Calcium 500 mg (*)] Cholecalciferol Vit D3 [Vitamin D3 1,000 units PO DAILY 05/01/18 (*)] Docusate Sodium [Colace 100 MG (*)] 100 mg PO DAILY PRN 05/01/18 Multivitamins [Multivitamin (*)] 1 each PO DAILY 05/01/18 Spironolactone [Aldactone 50 MG 100 mg PO DAILY 05/01/18 (RX)] Vitamin B Complex [Vitamin B 1 each PO DAILY 05/01/18 Complex (OTC)] traMADol [Ultram 50 mg (*)] 50 mg PO Q6HRS PRN 05/01/18 Medical Decision Making - Diagnostics Imaging Results: Imaging Impressions Chest X-Ray 05/01/18 14:18 Impression: 1. No acute findings. 2. Grossly stable osseous metastases. Imaging: I viewed and interpreted images myself Consult/Admit Bed Type: Dr. Royal Cabral [id number] - Data Points Laboratory Results: 05/01/18 12:15 Albumin 2.6 g/dL L g/dL (3.5-5.0) Medications Given: Discontinued Medications Sodium Chloride (Ns) 1,000 mls @ 0 mls/hr IV EDNOW ONE; Wide Open PRN Reason: Protocol Stop: 05/01/18 14:19 Last Admin: 05/01/18 15:02 Dose: 1,000 mls Albumin Human (Flexbumin 25 % (Premix)) 100 mls @ 0 mls/hr IV ONCE ONE PRN Reason: As Directed Stop: 05/01/18 15:49 Last Admin: 05/01/18 17:30 Dose: 100 mls Albumin Human (Flexbumin 25 % (Premix)) 100 mls @ 0 mls/hr IV ONCE ONE PRN Reason: As Directed Stop: 05/01/18 18:01 Last Admin: 05/01/18 18:13 Dose: 100 mls Departure - Departure Disposition: [facility] Acute Clinical Impression: Dehydration, Breast carcinoma, Acute kidney injury Condition: Good
[2018-05-01] MEDS ORDERED: NS 1,000 ML IV ONE (14:18)
[2018-05-01] MEDS ORDERED: ACETAMINOPHEN 325 MG TAB PO PRN (15:36)
[2018-05-01] MEDS ORDERED: ONDANSETRON 4 MG/2 ML VIAL IVP PRN (15:36)
[2018-05-01] MEDS ORDERED: ONDANSETRON DISINTEGRATING 4 MG TAB PO PRN (15:36)
[2018-05-01] MEDS ORDERED: oxyCODONE IR 5 MG TAB PO PRN (15:38)
[2018-05-01] MEDS ORDERED: traMADol 50 MG TAB PO PRN (15:38)
[2018-05-01] MEDS ORDERED: DOCUSATE SODIUM 100 MG CAP PO PRN (15:38)
[2018-05-01] MEDS ORDERED: NS 1,000 ML IV SCH (15:45)
[2018-05-01] MEDS ORDERED: ALBUMIN 25% 100 ML IV ONE ×2 (15:48→18:00)
--- NOTE | 2018-05-01 16:15 | GHP ---
DATE OF ADMISSION: 05/01/2018 HISTORY OF PRESENT ILLNESS: The patient is a pleasant 72-year-old female with a history of metastati c breast cancer, with recently placed [place] drain, who presents from oncology clinic with concerns f or sepsis. She had a slightly lowish blood pressure over there of systolic pressure of 80. She is 1 when she arrives here. She has not had recent fever, chills, cough, sputum, nausea, vomiting, diarrhea. She had a [place] drain placed last week and they took out 5 L and then earlier in the week her took out 2 L. Per her, she is eating and drinking reasonably well, but he is less clear on this. Her [place] drain site is clean, dry, and intact. She is due for chemotherapy tomorrow. Patient is full code. We did spend a few minutes discussing the risks and benefits of advance direct rufus. REVIEW OF SYSTEMS: Complete 10-point review of systems conducted and negative except as noted in the HPI. PAST MEDICAL HISTORY: 1. Metastatic breast cancer, with metastases to the liver. Her breast cancer was initially diagnose d in 2012, recurred in June of 2017 with metastasis to the bones and liver. It is HER-2 negative, es trogen receptor positive. She is currently getting Gemzar. 2. Other past medical history includes upper gastrointestinal bleed secondary to gastric ulcers from NSAIDs, hypothyroidism, hypertension no longer treated, history of hip and knee arthroplasty, should er surgery, obesity, cholecystectomy, diverticulitis. SOCIAL HISTORY: , lives with . No alcohol. No tobacco. Originally from [place]. FAMILY HISTORY: Parents are negative for cancer. PHYSICAL EXAMINATION: VITAL SIGNS: Temp 36.8, blood pressure 123/95, pulse 84, breathing 30 times a minute, 95% on room air. GENERAL: No acute distress. HEENT: Sclerae anicteric. Oropharynx clear . Mucous membranes moist. NECK: Supple. No lymphadenopathy or JVD. LUNGS: Clear to auscultation bilaterally. HEART: S1, S2. Not tachycardic. ABDOMEN: Soft. There is a fluid wave. There are some ascites present. Her [place] drain is clean, dry, intact. LOWER EXTREMITIES: Trace edema bilat erally. Calves are nontender. SKIN: Without rash. NEUROLOGIC: Nonfocal. LABS: White count 12.65, which is high for her. Hematocrit 40, which is high for her. Platelets ar e 366. Recent coags are normal. Venous lactate is elevated at 2.5. Sodium is 131, potassium 5.1, c hloride 97, bicarb 27, BUN 37, creatinine 1.4, her baseline is about 1, glucose 103, bilirubin is 2.8 , albumin is low at 2.6, AST 492, ALT is 225, and alk phosphatase is 852. Chest x-ray interpreted by me shows no acute cardiopulmonary disease. I have discussed the case with Dr. Aleksandr Rivera as well as Dr. Bartolo Ochoa of oncology. ASSESSMENT AND PLAN: A 72-year-old female presents with volume depletion, acute kidney injury, eleva brittnee lactate. 1. Elevated lactate. This is not from sepsis. The patient has poorly functioning liver from metast atic disease and therefore is unable to clear lactate. Blood cultures have been drawn. Antibiotics will be held if there is no source of infection. We will also check her ascitic fluid for cell count , Gram stain and culture. 2. Hypotension. This is hypovolemic hypotension that is actually improved with intravenous fluids. I will give her also 100 mL of 25% albumin, given her hypoalbuminemia. 3. Hyponatremia. This is probably diuretic related. I will hold her diuretics. 4. Hyperkalemia. This is borderline and is probably secondary to diuretic therapy. 5. Metastatic cancer. The patient is currently undergoing chemotherapy. 6. Code status. The patient sounds like she has never considered advance directives. I discussed t his briefly with her. No decision was made. information finding situation. 7. Disposition. Inpatient status. hydrocodone, betamethasone, celecoxib, NSAIDs. HOME MEDICATIONS: Vitamin D, multivitamin, docusate, vitamin D3, calcium carbonate, tramadol, spiron olactone, levothyroxine, Lasix, oxycodone, mag oxide, PreserVision. /[id number]/MODL
[2018-05-01] MEDS ORDERED: MAGNESIUM OXIDE 400 MG TAB PO SCH (21:00)
[2018-05-01] MEDS: PRESERVISION AREDS2 FORMULA EYE VIT 1 EACH PO SCH (21:28)
[2018-05-02 05:59] LABS: PLATELET COUNT 324 10^3/uL (150-400)
[2018-05-02] MEDS ORDERED: LEVOTHYROXINE 100 MCG TAB PO SCH (06:00)
--- NOTE | 2018-05-02 07:43 | PDMN ---
Medical Necessity Medical necessity: [facility] oncology: 72 yr old currently undergoing chemo for met. Br. Ca. presents with concern for sepsis. Pt has [place] drain placed. elevated lactate, most likely from poorly functioning liver from met. disease- hypotension, hyponatremia, hyperkalemia, pt currently undergoing chemo. due 05/02
[2018-05-02] MEDS ORDERED: VITAMIN B COMPLEX 1 EA CAP/TAB PO SCH (09:00)
[2018-05-02] MEDS ORDERED: ENOXAPARIN 40 MG/0.4 ML SYR SC SCH (09:00)
[2018-05-02] MEDS ORDERED: CALCIUM CARBONATE 500 MG TAB PO SCH (09:00)
[2018-05-02] MEDS ORDERED: MULTIVITAMINS 1 EACH TAB PO SCH (09:00)
[2018-05-02] MEDS ORDERED: CHOLECALCIFEROL VIT D3 1,000 UNITS TAB PO SCH (09:00)
[2018-05-02 09:16] VITALS: BP 117/86
[2018-05-02 09:35] LABS: INR 1.09 (0.83-1.16); PROTIME(PATIENT) 14.3 SEC (12.0-15.0)
[2018-05-02] MEDS: PRESERVISION AREDS2 FORMULA EYE VIT 1 EACH PO SCH (12:05)
--- NOTE | 2018-05-02 12:11 | PDDCSUM ---
Discharge Summary Discharge Summary: Date of Admission: May 01, 2018 Date of Discharge: May 02, 2018 Discharge Diagnoses: Admission Diagnoses: Elevated lactate Hypotension Hyponatremia Hyperkalemia Metastatic cancer Consultants: Oncology-Dr. Bartolo Ochoa [facility] Course: The patient is a 72-year-old female with a history of stage IV breast cancer and a recently placed [place] drain for malignant ascites who presented from the Oncology Clinic for concerns about sepsis. She had a moderately low blood pressure at the cancer center. When she arrived at the ED, her blood pressure was normal. She denied any fevers or chills or other systemic symptoms aside from fatigue, which has been attributed to cancer and chemotherapy. She had a [place] drain placed about 1 week ago and has been removing fluid from it. Last week they removed 5 L in earlier this week they removed 2 L. The patient has been eating and drinking fluids. In the hospital, patient was found to have an elevated lactate level of 2.5. Her white blood cell count was mildly elevated at 10.5. Blood cultures were drawn and are pending. Patient's symptoms were attributed to dehydration, as patient has not been consuming as much fluid as she has been losing through her [place] drain. Patient was evaluated by the oncologist who recommended that patient continue chemotherapy. Patient was feeling well and was discharged to get her outpatient chemotherapy and then go home. She may follow up on results of the blood cultures with her oncologist. Physical Exam: Gen: alert, oriented, in NAD. CV: RRR no MRG. Resp: unlabored, CTAB no RRW. Abd: SND. Drain in place with dressing CDI. MSK: ambulating. Psych: appropriate mood/affect. Condition: Stable. Discharged to: Home. Pertinent tests/labs/imaging: BUN 33, creatinine 1.1, sodium 132. Urinalysis-negative for infection. Coagulation panel-negative. Hemoglobin 11.2. Chest x-ray-no acute cardiopulmonary findings. Stable osseous metastases. Medications: Please see med rec form. Resume home medications. Special instructions: Consider removing less fluid from the [place] drain daily to avoid dehydration. Continue drinking fluids (at least as much as you drain out) to avoid dehydration. If it is too difficult to drink enough fluid, consider to request IV fluid infusions at the [facility]. Return to ED for worsening symptoms. Follow up: PCP as scheduled. Oncologist Dr. Marcus in 1-2 days.
--- NOTE | 2018-05-02 12:58 | ASMTLACE ---
LACE Length of stay for Answers: Less than 1 day current admission Comorbidities - select Answers: Any tumor (including all that apply lymphoma or leukemia) # of Emergency department Answers: 1-2 visits in the last 6 months Score: 3 Date Signed: 05/02/2018 12:56 PM Electronically Signed By:Nell Zendejas RN
--- NOTE | 2018-05-02 13:02 | ASMTDCNOTE ---
Case Management Discharge Discharge Order Complete? Answers: Yes Patient to Obtain Answers: via Family Medications Transportation Arranged Answers: Family/Friends Family Notified Answers: Yes Discharge Comments Notes: Patient medically cleared for discharge today. No current needs, Date Signed: 05/02/2018 01:01 PM Electronically Signed By:Nlel Zendejas RN
--- NOTE | 2018-05-02 13:04 | ASMTCMCOM ---
CM Note CM Note Notes: Patient cleared for dc was admitted with hypotension from [facility], now resolved. No needs identifed at present. CM available should needs arise, Plan: Home with family support. Date Signed: 05/02/2018 01:03 PM Electronically Signed By:Nell Zendejas RN
== END 2018-05-02 13:22 | disposition home or self-care (01) ==
LOC: OBSVTOIN 15:08 → INTOOBSV 15:08 → F1N 16:33
PROVIDERS: ADMIT Internal Medicine; ATTEND Internal Medicine
DX: E86.0 Dehydration (principal); R79.89 Other specified abnormal findings of blood chemistry; R18.0 Malignant ascites; C78.7 Secondary malignant neoplasm of liver and intrahepatic bile duct; I10 Essential (primary) hypertension; E03.9 Hypothyroidism, unspecified; C50.919 Malignant neoplasm of unspecified site of unspecified female breast; I95.89 Other hypotension; E87.1 Hypo-osmolality and hyponatremia; E87.6 Hypokalemia; Z79.899 Other long term (current) drug therapy
CPT/HCPCS: 71046; 96360; 97116; 97161; 97165; 99285; G0378; J1650; P9047

== ENCOUNTER 2018-05-15 10:30 | Inpatient (IN) | payer OTHER ==
[2018-05-15] MEDS ORDERED: NS 500 ML IV ONE ×2 (11:08→16:52)
--- NOTE | 2018-05-15 11:08 | EDPHY ---
H & P Stated Complaint: abd pain/cough on chemo Time Seen by Provider: 05/15/18 10:42 HPI/ROS: CHIEF COMPLAINT: Generalized weakness, back pain HISTORY OF PRESENT ILLNESS: 72-year-old female with metastatic breast cancer presents with generalized weakness and back pain. 2 day history of generalized weakness, received chemotherapy yesterday. After chemotherapy, she became more weak and thus left throughout most of the afternoon and evening. She had a few sips of soup for dinner and is tolerating water well. Feels very thirsty. She did not sleep at all last night because of back pain that she attributes to a spinal tumor. She took tramadol at 7:00 a.m. This morning and is now very sleepy. Her family was concerned because of excessive weakness. She normally has home paracentesis every other day. Yesterday, 1.5 L asites removed. Her family thought that her legs look more swollen than usual this morning, so gave her Lasix. No fever or recent illness. REVIEW OF SYSTEMS: complete 10 point ROS reviewed and is negative except for the noted elements in the HPI - Personal History Current Tetanus/Diphtheria Vaccine: Yes Tetanus Vaccine Date: 01/2010 - Medical/Surgical History Hx Asthma: No Hx Chronic Respiratory Disease: No Hx Diabetes: No Hx Cardiac Disease: No Hx Renal Disease: No Hx Cirrhosis: No Hx Alcoholism: No Hx HIV/AIDS: No Hx Splenectomy or Spleen Trauma: No Other PMH: htn,hypothyroid. surg-2knee,2 shoulder,chandu,achilles tendon,rt hip , breast. cancer - Social History Smoking Status: Never smoked Alcohol Use: None Drug Use: None - Physical Exam Exam: General Appearance: Drowsy, answers questions, then falls back to sleep Eyes: Pupils equal and round, 2 mm, mild conjunctival pallor ENT, Mouth: Mucous membranes dry Neck: Normal inspection Respiratory: Lungs are clear to auscultation anteriorly Cardiovascular: Regular rate and rhythm Gastrointestinal: Abdomen is soft and nontender Neurological: Drowsy, nonfocal exam Skin: Warm and dry, multiple areas of ecchymosis on the extremities Extremities: 1+ pedal edema Psychiatric: Flat affect Constitutional: Initial Vital Signs Heart Rate 85 05/15/18 10:34 Respiratory Rate 18 05/15/18 10:34 Blood Pressure 96/71 L 05/15/18 10:34 O2 Sat (%) 93 05/15/18 10:34 O2 Delivery Mode Room Air Allergies/Adverse Reactions: hydrocodone bitartrate [From Lortab] Allergy (Severe, Verified 05/15/18 12:44) Other-Enter Comments betamethasone Allergy (Unknown, Verified 05/15/18 12:44) Other-Enter Comments betamethasone sodium phosphate [From Celestone] Allergy (Unknown, Verified 05/15 12:44) Other-Enter Comments celecoxib Allergy (Unknown, Verified 05/15/18 12:44) Itching NSAIDS (Non-Steroidal Anti-Inflamma [NSAIDS (Non-Steroidal Anti-Inflammatory Drug)] Allergy (Unknown, Verified 05/15/18 12:44) ULCERS betamethasone sodium phosphate Allergy (Unknown, Uncoded 05/15/18 10:37) Other-Enter Comments hydrocodone bitartrate Allergy (Unknown, Uncoded 05/15/18 10:37) Other-Enter Comments Home Medications: Medication Instructions Recorded Levothyroxine [Synthroid 100 mcg 100 mcg PO DAILY06 12/03/09 (*)] C/E/Zn/Cu/OM3/DHA/EPA/LUT/ZEAX 1 ea PO BID 04/11/16 [Preservision Areds 2 Softgel] Magnesium Oxide [Magnesium Oxide 400 mg PO HS 04/11/16 400 mg (*)] Furosemide [Lasix 20 MG (*)] 20 mg PO DAILY PRN 04/23/18 Calcium Carbonate [Oyster Shell 500 mg PO DAILY 05/01/18 Calcium 500 mg (*)] Cholecalciferol Vit D3 [Vitamin D3 1,000 units PO DAILY 05/01/18 (*)] Docusate Sodium [Colace 100 MG (*)] 100 mg PO DAILY PRN 05/01/18 Multivitamins [Multivitamin (*)] 1 each PO DAILY 05/01/18 Vitamin B Complex [Vitamin B 1 each PO DAILY 05/01/18 Complex (OTC)] traMADol [Ultram 50 mg (*)] 50 mg PO Q6HRS PRN 05/01/18 Medical Decision Making - Diagnostics EKG Interpretation: EKG interpreted by me reveals normal sinus rhythm, rate 71, PACs, poor R-wave progression. Interpretation: Abnormal EKG ED Course/Re-evaluation: This patient with metastatic breast CA presents with generalized weakness, altered mental status and ongoing back pain. Clinically she is ill-appearing and appears significantly dehydrated. IV normal saline 500 mL given. Laboratory tests reveal new hyponatremia, serum sodium level 123 and acute renal failure with BUN 68 and creatinine 2.1. Leukocytosis present, query whether this is secondary to chemotherapy vs infection. She does not have a fever. Urinalysis, chest x-ray and blood cultures ordered. Considered SBP, and abd soft, NT, doubt SBP. Ammonia level added to rule out hepatic encephalopathy. UA not obtained, as pt did not urinate in ED, likely secondary to dehydration. CXR reveals atelectasis, no infiltrate visualized by me. Ammonia slightly high, labs c/w hepatic failure. Ne thrombocytopenis, plts 24, will consider transfusion as inpt or clinically bleeding. Pt had significant back pain in ED, Morphine IV given for pain control. contract negotiation manager d/w pt and family, initiation of hospice discussion. Dr. Ochoa consulted and will see pt in hospital. The hospitalist service was consulted for admission. Differential Diagnosis: includes though not limited to infectious etiology, such as SBP/pneumonia/UTI, worsening metastatic disease, severe dehydration, hepatic encephalopathy - Data Points Laboratory Results: Laboratory Results 05/15/18 11:15 05/15/18 11:15 Medications Given: Discontinued Medications Glycopyrrolate (Glycopyrrolate) 0.2 mg IVP/IM Q4HRS PRN PRN Reason: Upper Airway Secretions Stop: 11/12/18 06:13 Last Admin: 05/16/18 08:00 Dose: 0.2 mg Sodium Chloride (Ns) 500 mls @ 1,000 mls/hr IV EDNOW ONE PRN Reason: Protocol Stop: 05/15/18 11:37 Last Admin: 05/15/18 11:33 Dose: 500 mls Sodium Chloride (Ns) 1,000 mls @ 0 mls/hr IV ONCE ONE; Wide Open PRN Reason: Protocol Stop: 05/15/18 12:31 Last Admin: 05/15/18 12:47 Dose: 1,000 mls Albumin Human (Flexbumin 25 % (Premix)) 100 mls @ 0 mls/hr IV ONCE ONE PRN Reason: As Directed Stop: 05/15/18 15:34 Last Admin: 05/15/18 15:50 Dose: 100 mls Piperacillin/Tazobactam/Dextrose (Zosyn 2.25 Gm (Premix)) 50 mls @ 100 mls/hr IV Q6H CORY Stop: 06/14/18 15:59 Last Admin: 05/16/18 12:46 Dose: Not Given Sodium Chloride (Ns) 1,000 mls @ 125 mls/hr IV CONT CORY Stop: 11/11/18 16:59 Last Admin: 05/15/18 17:04 Dose: 1,000 mls Sodium Chloride (Ns) 500 mls @ 1,500 mls/hr IV ONCE ONE Stop: 05/15/18 17:11 Last Admin: 05/15/18 17:06 Dose: 500 mls Norepinephrine 4 mg/ Sodium (Chloride) 504 mls @ 0 mls/hr IV CONT CORY; Per Protocol PRN Reason: Protocol Stop: 11/11/18 18:29 Last Admin: 05/16/18 05:19 Dose: 504 mls Levothyroxine Sodium (Synthroid) 100 mcg PO DAILY06 CORY Stop: 11/12/18 05:59 Last Admin: 05/16/18 07:48 Dose: Not Given Lorazepam (Ativan Injection) 0.5 - 2 mg IVP Q2HRS PRN PRN Reason: Anxiety, Unable to Take PO Stop: 11/12/18 10:03 Last Admin: 05/16/18 16:00 Dose: 2 mg Morphine Sulfate (Morphine) 4 mg IVP Q1H PRN PRN Reason: Pain, Severe Unable to Take PO Last Admin: 05/15/18 12:37 Dose: 4 mg Morphine Sulfate (Morphine) 2 mg IVP Q3H PRN PRN Reason: Pain, Breakthrough Stop: 05/25/18 17:11 Last Admin: 05/15/18 17:20 Dose: 2 mg Morphine Sulfate (Morphine) 2 mg IVP Q1H PRN PRN Reason: Pain, Breakthrough Stop: 05/25/18 17:11 Last Admin: 05/16/18 08:50 Dose: 2 mg Morphine Sulfate (Morphine) 4 mg IVP Q1H PRN PRN Reason: COMFORT CARE MEASURES Stop: 05/25/18 17:11 Last Admin: 05/17/18 01:00 Dose: 4 mg Ondansetron HCl (Zofran) 4 mg IVP EDNOW ONE Stop: 05/15/18 12:28 Last Admin: 05/15/18 12:38 Dose: 4 mg Point of Care Test Results: Chemistry 05/15/18 12:01 POC Sodium 125 mEq/L L mEq/L (135-145) POC Potassium 6.3 mEq/L H* mEq/L (3.3-5.0) POC Chloride 96 mEq/L L mEq/L (97-110) POC BUN 56 mg/dL H mg/dL (7-23) POC Creatinine 2.3 mg/dL H mg/dL (0.6-1.0) POC Glucose 80 mg/dL mg/dL (70-100) ISTAT H&H 05/15/18 12:01 POC Hgb 12.2 gm/dL L gm/dL (12.6-16.3) POC Hct 36 % L % (38-47) Departure - Departure Disposition: [facility] Inpatient Acute Clinical Impression: Dehydration, Acute kidney injury, Thrombocytopenia Breast carcinoma Qualifiers: Breast location: unspecified site of breast Estrogen receptor status: unspecified Patient sex: female Laterality: unspecified laterality Qualified Code(s): C50.919 - Malignant neoplasm of unspecified site of unspecified female breast
[2018-05-15 12:01] LABS: PLATELET COUNT 24 10^3/uL (150-400)
[2018-05-15 12:14] LABS: INR 1.44 (0.83-1.16); PROTIME(PATIENT) 17.7 SEC (12.0-15.0)
[2018-05-15] MEDS ORDERED: ONDANSETRON 4 MG/2 ML VIAL IVP ONE (12:27)
[2018-05-15] MEDS ORDERED: NS 1,000 ML IV ONE (12:30)
[2018-05-15] MEDS ORDERED: traMADol 50 MG TAB PO PRN (13:52)
[2018-05-15] MEDS ORDERED: DOCUSATE SODIUM 100 MG CAP PO PRN (13:52)
--- NOTE | 2018-05-15 13:54 | PDGENHP ---
History and Physical - Chief Complaint generalized weakness, not urinating - History of Present Illness 72yo with metastatic breast cancer on gemcitabine presents with progressive generalized weakness and inability to urinate that started yesterday. Patient somnolent and unable to provide history. and daughter state she's been getting weaker, not eating much. No fevers, cough, n/v/d. has been draining 1-1.5L out of [place] drain every other day. Yesterday she did not urinate, which was unusual for her. She drank quite a bit of water but still didn't pee so came in for evaluation. She has been bruising very easily but no bleeding. In the ED, she had numerous lab derangements indicating liver failure , severe thrombocytopenia (24k, down from 250k a little over a week ago), and HUSEYIN. She is also hypotensive. She is being admitted to the step down unit for further care. Case discussed with ED physician Kia Mcfarland. History Information - Allergies/Home Medication List Allergies/Adverse Reactions: hydrocodone bitartrate [From Lortab] Allergy (Severe, Verified 05/15/18 12:44) Other-Enter Comments betamethasone Allergy (Unknown, Verified 05/15/18 12:44) Other-Enter Comments betamethasone sodium phosphate [From Celestone] Allergy (Unknown, Verified 05/15 12:44) Other-Enter Comments celecoxib Allergy (Unknown, Verified 05/15/18 12:44) Itching NSAIDS (Non-Steroidal Anti-Inflamma [NSAIDS (Non-Steroidal Anti-Inflammatory Drug)] Allergy (Unknown, Verified 05/15/18 12:44) ULCERS betamethasone sodium phosphate Allergy (Unknown, Uncoded 05/15/18 10:37) Other-Enter Comments hydrocodone bitartrate Allergy (Unknown, Uncoded 05/15/18 10:37) Other-Enter Comments Home Medications: Levothyroxine [Synthroid 100 mcg (*)] 100 mcg PO DAILY06 12/03/09 [Last Taken ] C/E/Zn/Cu/OM3/DHA/EPA/LUT/ZEAX [Preservision Areds 2 Softgel] 1 ea PO BID [Last Taken 04/30/18 21:00] Magnesium Oxide [Magnesium Oxide 400 mg (*)] 400 mg PO HS 04/11/16 [Last Taken 04/30/18] Furosemide [Lasix 20 MG (*)] 20 mg PO DAILY PRN 04/23/18 [Last Taken 05/01/18] Calcium Carbonate [Oyster Shell Calcium 500 mg (*)] 500 mg PO DAILY 05/01/18 [ Last Taken 04/30/18] Cholecalciferol Vit D3 [Vitamin D3 (*)] 1,000 units PO DAILY 05/01/18 [Last Taken 04/30/18] Docusate Sodium [Colace 100 MG (*)] 100 mg PO DAILY PRN 05/01/18 [Last Taken Unknown] Multivitamins [Multivitamin (*)] 1 each PO DAILY 05/01/18 [Last Taken 04/30/18] Vitamin B Complex [Vitamin B Complex (OTC)] 1 each PO DAILY 05/01/18 [Last Taken 04/30/18] traMADol [Ultram 50 mg (*)] 50 mg PO Q6HRS PRN 05/01/18 [Last Taken 05/15/18] I have personally reviewed and updated: family history, medical history, social history, surgical history - Past Medical History Additional medical history: Breast cancer with diffuse mets to bone and liver, Hypothyroidism, Hypertension - Surgical History Additional surgical history: Shoulder surgery, Cholecystectomy, Total knee arthroplasty - Family History Positive for: non-pertinent - Social History Smoking Status: Never smoked Alcohol Use: None Drug Use: None Additional social history: Lives with , daughter and multiple family members at bedside Review of Systems Review of Systems: ROS: 10pt was reviewed & negative except for what was stated in HPI & below Physical Exam Physical Exam: Temp Pulse Resp BP Pulse Ox 36.3 C 68 18 87/57 L 92 05/15/18 13:22 05/15/18 13:22 05/15/18 11:59 05/15/18 13:22 05/15/18 13:22 Constitutional: no apparent distress, chronically ill appearing, other ( somnolent) Eyes: icteric sclera Ears, Nose, Mouth, Throat: dry mucous membranes Cardiovascular: regular rate and rhythym, No edema Respiratory: no respiratory distress, no rales or rhonchi, clear to auscultation Gastrointestinal: distension, other (Brendon drain in RLQ) Genitourinary: no bladder fullness, no bladder tenderness Skin: other (multiple bruises) Musculoskeletal: generalized weakness Neurologic: other (alert, not able to answer questions appropriately) Psychiatric: encephalopathic Lab Data & Imaging Review 05/15/18 11:15 05/15/18 11:15 WBC 22.04 10^3/uL (3.80-9.50) H 05/15/18 11:15 RBC 3.49 10^6/uL (4.18-5.33) L 05/15/18 11:15 Hgb 10.6 g/dL (12.6-16.3) L 05/15/18 11:15 POC Hgb 12.2 gm/dL (12.6-16.3) L 05/15/18 12:01 Hct 29.7 % (38.0-47.0) L 05/15/18 11:15 POC Hct 36 % (38-47) L 05/15/18 12:01 MCV 85.1 fL (81.5-99.8) 05/15/18 11:15 MCH 30.4 pg (27.9-34.1) 05/15/18 11:15 MCHC 35.7 g/dL (32.4-36.7) 05/15/18 11:15 RDW 23.9 % (11.5-15.2) H 05/15/18 11:15 Plt Count 24 10^3/uL (150-400) L* 05/15/18 11:15 MPV TNP 05/15/18 11:15 Neut % (Auto) Not Reported 05/15/18 11:15 Lymph % (Auto) Not Reported 05/15/18 11:15 Brantley % (Auto) Not Reported 05/15/18 11:15 Eos % (Auto) Not Reported 05/15/18 11:15 Baso % (Auto) Not Reported 05/15/18 11:15 Nucleat RBC Rel Count Not Reported 05/15/18 11:15 Absolute Neuts (auto) Not Reported 05/15/18 11:15 Absolute Lymphs (auto) Not Reported 05/15/18 11:15 Absolute Monos (auto) Not Reported 05/15/18 11:15 Absolute Eos (auto) Not Reported 05/15/18 11:15 Absolute Basos (auto) Not Reported 05/15/18 11:15 Absolute Nucleated RBC Not Reported 05/15/18 11:15 Immature Gran % Not Reported 05/15/18 11:15 Seg Neutrophils % 90.2 % 05/15/18 11:15 Band Neutrophils % 8.8 % 05/15/18 11:15 Lymphocytes % 1.0 % 05/15/18 11:15 Monocytes % 0.0 % 05/15/18 11:15 Eosinophils % 0.0 % 05/15/18 11:15 Basophils % 0.0 % 05/15/18 11:15 Metamyelocytes % 0.0 % 05/15/18 11:15 Myelocytes % 0.0 % 05/15/18 11:15 Promyelocytes % 0.0 % 05/15/18 11:15 Blast Cells % 0.0 % 05/15/18 11:15 Immature Gran # Not Reported 05/15/18 11:15 Absolute Seg Neuts 19.88 10^3/uL (1.70-6.50) H 05/15/18 11:15 Absolute Band Neuts 1.94 10^3/uL (0.00-0.70) H 05/15/18 11:15 Absolute Lymphocytes 0.22 10^3/uL (1.00-3.00) L 05/15/18 11:15 Absolute Monocytes 0.00 10^3/uL (0.30-0.80) L 05/15/18 11:15 Absolute Eosinophils 0.00 10^3/uL (0.03-0.40) L 05/15/18 11:15 Absolute Basophils 0.00 10^3/uL (0.02-0.10) L 05/15/18 11:15 Absolute Metamyelocyte 0.00 10^3/mL (0.00-0.00) 05/15/18 11:15 Absolute Myelocytes 0.00 10^3/mL (0.00-0.00) 05/15/18 11:15 Absolute Promyelocytes 0.00 10^3/uL (0.00-0.00) 05/15/18 11:15 Absolute Plasma Cells 0.00 10^3/uL (0.00-0.00) 05/15/18 11:15 Nucleated RBCs 0 /100 WBC (0-0) 05/15/18 11:15 Absolute Blast Cells 0.00 10^3/uL (0.00-0.00) 05/15/18 11:15 Plasma Cells % 0.0 % 05/15/18 11:15 Platelet Estimate DECREASED (ADEQ) L 05/15/18 11:15 Target Cells 1+ H 05/15/18 11:15 Oval Macrocytes 2+ H 05/15/18 11:15 PT 17.7 SEC (12.0-15.0) H 05/15/18 11:15 INR 1.44 (0.83-1.16) H 05/15/18 11:15 APTT > 250.0 SEC (23.0-38.0) H* 05/15/18 11:15 POC Sodium 125 mEq/L (135-145) L 05/15/18 12:01 Sodium 123 mEq/L (135-145) L 05/15/18 11:15 POC Potassium 6.3 mEq/L (3.3-5.0) H* 05/15/18 12:01 Potassium 6.3 mEq/L (3.5-5.2) H* 05/15/18 11:15 POC Chloride 96 mEq/L (97-110) L 05/15/18 12:01 Chloride 97 mEq/L (97-110) 05/15/18 11:15 Carbon Dioxide 17 mEq/l (22-31) L 05/15/18 11:15 Anion Gap 9 mEq/L (6-14) 05/15/18 11:15 POC BUN 56 mg/dL (7-23) H 05/15/18 12:01 BUN 68 mg/dL (7-23) H 05/15/18 11:15 Creatinine 2.1 mg/dL (0.6-1.0) H 05/15/18 11:15 POC Creatinine 2.3 mg/dL (0.6-1.0) H 05/15/18 12:01 Estimated GFR 23 05/15/18 11:15 Glucose 84 mg/dL (70-100) 05/15/18 11:15 POC Glucose 80 mg/dL (70-100) 05/15/18 12:01 Calcium 7.7 mg/dL (8.5-10.4) L 05/15/18 11:15 Ionized Calcium 1.03 MMOL/L (1.12-1.30) L 05/15/18 12:40 Total Bilirubin 8.8 mg/dL (0.1-1.4) H 05/15/18 11:15 Conjugated Bilirubin 6.9 mg/dL (0.0-0.5) H 05/15/18 11:15 Unconjugated Bilirubin 1.9 mg/dL (0.0-1.1) H 05/15/18 11:15 AST 346 IU/L (14-46) H 05/15/18 11:15 ALT 182 IU/L (9-52) H 05/15/18 11:15 Alkaline Phosphatase 561 IU/L (38-126) H 05/15/18 11:15 Ammonia 31.0 uMOL/L (9.0-30.0) H 05/15/18 12:40 Total Protein 5.5 g/dL (6.3-8.2) L 05/15/18 11:15 Albumin 2.2 g/dL (3.5-5.0) L 05/15/18 11:15 Lipase 259 IU/L (23-300) 05/15/18 11:15 Assessment & Plan Assessment: 72yo F with metastatic breast cancer here with general decline in health found to be in multiorgan failure and hypotensive. Plan: 1. Hypotension: Suspect this is driven by liver failure, less likely infection but will cover for this. - Blood, peritoneal fluid cultures, start zosyn - Bolus 25% albumin, continue NS - Discussed vasopressors with family. They would like to use, if necessary, while ruling out infection. I discussed that her hypotension may be irreversible if truly due to liver failure alone. She has central access via her port. 2. Acute hepatic failure: Encephalopathy, coagulopathy, and climbing bilirubin. Due to liver mets. - Monitor liver function studies 3. Acute kidney injury: Likely combo of obstruction, poor PO, possibly hepatorenal. - Check urine lytes, renal ultrasound. If obstructed, consider discussing with urology 4. Malignant ascites: Has [place] drain in place. - Will drain 250ml this evening due to concern about fluid shifts. 5. Thrombocytopenia: Initial concern for TMA but no schistos on smear. Suspect d /t chemotherapy. - Hold gemcitabine, monitor counts 6. Coagulopathy: Related to liver dysfunction. Not bleeding presently. With normal fibrinogen and no schistos, unlikely DIC. - Can give blood products if bleeding 7. Metastatic breast cancer: Followed by Dr Bond. 8. Hyponatremia: Na 123. Hypovolemic. - IVF as above, recheck as to not correct too quickly 9. SIRS: As above, likely due to cancer and less likely infection but will cover as such. VTE ppx: SCDs Code: DNR/DNI per discussion with patient/family today Diet: regular Dispo: Admit as inpatient to SDU. I discussed poor prognosis with family at bedside. She has multi-organ failure and hypotension possibly due to irreversible processes. I informed them that she may pass in coming hours-days if this is the case.
--- NOTE | 2018-05-15 13:57 | CPEKG ---
Test Reason : OPEN Blood Pressure : / mmHG Vent. Rate : 071 BPM Atrial Rate : 075 BPM P-R Int : 069 ms QRS Dur : 102 ms QT Int : 407 ms P-R-T Axes : 078 -60 018 degrees QTc Int : 443 ms Atrial fibrillation Anterolateral infarct, age indeterminate Confirmed by Kia Mcfarland ([id number]) on 05/15/2018 1:56:50 PM Referred By: Confirmed By:Kia Mcfarland
--- NOTE | 2018-05-15 15:00 | PDCONSULT ---
Appeals Representative Note: Oncology consultation note Her requesting provider: Xu Thomson Reason for consultation: Metastatic breast cancer History of present illness: This is a 72-year-old female with history of metastatic breast cancer who was admitted for difficulties urinating and weakness. She is well known to our practice and follows with Dr. Jen Bond at [facility]. She initially was diagnosed with stage IA breast cancer in 2011 those treated with lumpectomy, radiation and endocrine therapy with anastrozole. She then had local recurrence in November of 2015 she was a stage IIIB at that time for which she underwent mastectomy. She received adjuvant chemotherapy with carboplatin, docetaxel and Herceptin up until April of 2017. She was on endocrine therapy thereafter with anastrozole. Then in June of 2017 she was diagnosed with fulminant metastatic disease to the liver and bones. She was triple positive with biomarkers at that time. She was treated with fulvestrant and abemaciclib with progression. She then was switched to paclitaxel, trastuzumab and Perjeta. Then she was switched to gemcitabine and trastuzumab which she has been on since 04/18/2018. She had some issues with tolerance and has had dose reductions along the way. She was admitted to [facility] as she had poor PO intake over the last few days and almost no urine output. She continues to have abdominal pain related to her ascities and back pain related to her metastatic disease and that has kept her up at night. No fevers at home. She reports a dry mouth and decrease solid food intake. Past medical and surgical history: Breast cancer surgery as per above Hypothyroidism Hypertension Shoulder surgery Cholecystectomy Total knee arthroplasty Social history: She is lives with her she has got multiple kids living close to or helping her with her ADLs.. Family history: Father with history of stroke stroke and colon cancer Allergies: Noted in the EMR Review of systems: 12 point review systems obtained was otherwise negative unless stated in HPI Outpatient medications: Reviewed in the electronic medical record Physical examination: Vital signs reviewed with blood pressure ranging from 60s to 70s to 30s or 40s with episodes of bradycardia noted General: Ill-appearing female does answer some questions but is fairly somnolent HEENT: Dry mucous membranes, scleral icterus noted, oropharynx is clear extra movements are intact, conjunctiva bleed noted Pulmonary: Clear on anterior auscultation Cardiovascular: Regular rate and rhythm Abdomen: Distended bowel sounds are present, nontender, unable to palpate liver due to the distension, right-sided Gila catheter in the lower quadrant Extremities: 1+ lower extremity edema left greater than right Neuro: Alert and oriented to person place and time, moves all extremities, Skin: Multiple ecchymosis noted throughout Labs: WBC 22.04 with immature granulocytes, hemoglobin 10.6, platelets 24, a peripheral smear demonstrates no evidence of schistocytes Creatinine 2.3, potassium 6.3, total bilirubin 8.8, indirect bilirubin 1.9, AST 346, ALT 182, LDH 1400 INR 1.44, PTT greater than 250, fibrinogen 400, D-dimer 6.54 Assessment and plan Jerrica is a 72-year-old female with history of metastatic breast cancer receiving gemcitabine and Herceptin who was admitted for weakness decreased p.o. Intake decreased urine output. 1. Decreased urine output: She does have acute renal failure as well. I would rule out hydronephrosis and obtain ultrasound of the abdomen. If she does have hydrated we would involve Urology. Agree with continuing IV fluids for the time being. 2. Leukocytosis: I would cover for sepsis possibly from a peritoneal source of late examination is not consistent with peritonitis. 3. Malignant ascites: She does have a Gila catheter and likely would benefit from drainage while inpatient. 4. Thrombocytopenia: She does not have any schistocytes on peripheral smear. Her fibrinogen is normal although her PTT is unmeasurable in her D-dimer is elevated. I do not think that this is the gemcitabine associated microangiopathic hemolytic anemia. I think the majority of her thrombocytopenia secondary to chemotherapy. 5. Liver failure: This is secondary to her metastatic disease. Her bilirubin continues to climb. 6. Metastatic breast cancer: I had a long discussion with the family members including the daughter, the son, and the . She had previously expressed that she did not want to have any resuscitative efforts including intubation or CPR. I have therefore placed a DNR order which everyone finds agreeable. I also discussed the gravity of her situation with multiorgan failure. She had previously expressed her that she wants to"continue the fight". For the time being they would like to continue medical care in the ICU. I did discuss that she might not be able to receive further cancer directed therapy given her declining performance status over the last month. Total of 85 min was dedicated to patient care with greater than 50% of it spent on direct patient counseling of her breast cancer diagnosis and ongoing ICU care.
[2018-05-15] MEDS ORDERED: ALBUMIN 25% 100 ML IV ONE (15:33)
[2018-05-15] MEDS ORDERED: PIPERACILLIN/TAZO 3.375 GM/DEX 50 ML IV SCH (16:00)
--- NOTE | 2018-05-15 16:10 | ASMTCMCOM ---
CM Note CM Note Notes: patient admitted with complex medical history including metastatice breast cancer with bone and liver mets. Per chart review, patient's PCP is Dr. Reinaldo Davis at [facility]. This CM LM with Mindi Low RN Binder Technician # [id number] Davis to alert to patient's admission CM to follow Date Signed: 05/15/2018 04:10 PM Electronically Signed By:Karlie Billings RN
[2018-05-15] MEDS ORDERED: NS 1,000 ML IV SCH (17:00)
[2018-05-15] MEDS: PIPERACILLIN/TAZO 2.25 GM/DEX 50 ML IV SCH (17:04)
[2018-05-15] MEDS: NOREPINEPHRINE BITARTRATE 4 MG in NS 500 ML IV SCH ×2 (18:19→22:45)
[2018-05-15 18:25] LABS: INR 1.4 (0.83-1.16); PROTIME(PATIENT) 17.3 SEC (12.0-15.0)
--- NOTE | 2018-05-15 18:45 | PDMN ---
Medical Necessity Medical necessity: [facility] General Admission: 72 yo w/ metastatic breast ca presents w/ progressive generalized weakness and inability to urinate. Meets [facility] IP status for gen admit as further assessment reveals multiorgan failure and hypotension. Pt in acute hepatic failure w/ encephalopathy, coagulopathy and climbing bili 8.8; Acute kidney injury creat 2.1, likely combo of obstruction, poor PO intake, possibly hepatorenal; Malignant ascites w/ Brendon drain in place, plan to drain tonight; Thrombocytopenia prob 2nd chemo (plt 24) ; Hyponatremia Na12: Hyperkalemia K 6.3. Pt started on IV antibx, IVF, IV vasopressors for SBP 70s, IV opioids for pain control.
[2018-05-16] MEDS: NOREPINEPHRINE BITARTRATE 4 MG in NS 500 ML IV SCH ×3 (01:29→05:19)
[2018-05-16] MEDS: PIPERACILLIN/TAZO 2.25 GM/DEX 50 ML IV SCH ×3 (04:40→12:46)
[2018-05-16 04:54] LABS: INR 1.67 (0.83-1.16); PROTIME(PATIENT) 19.8 SEC (12.0-15.0)
[2018-05-16 05:04] LABS: PLATELET COUNT 24 10^3/uL (150-400)
[2018-05-16] MEDS ORDERED: LEVOTHYROXINE 100 MCG TAB PO SCH (06:00)
[2018-05-16] MEDS ORDERED: GLYCOPYRROLATE 0.2 MG/1 ML VIAL IVP/IM PRN (06:14)
[2018-05-16] MEDS ORDERED: SCOPOLAMINE HYDROBROMIDE 1 MG/3 DAYS PATCH TD PRN (10:04)
[2018-05-16] MEDS ORDERED: ATROPINE 1% 5 ML OPHT.BTL SL PRN (10:04)
[2018-05-16] MEDS ORDERED: morphINE 10 MG/0.5 ML UDSYR PO PRN (10:04)
--- NOTE | 2018-05-16 13:20 | ASMTCASEMG ---
Living Arrangements What is your living Answers: With Spouse arrangement? Who do you live with? Type Of Residence What kind of residence do Answers: House you live in? Discharge Plan Comments Coordination Status Comments Notes: Patient is a 72yo female with metastatic breast cancer found to be in multiorgan failure and hypotensive. She has been admitted for hypotension, acute hepatic failure, acute kidney injury, malignant ascites, thrombocytopenia, coagulopathy, hyponatremia, SIRS, and metastatic breast cancer. No therapies ordered at this time. D/C plan TBD. CM will follow. Date Signed: 05/16/2018 01:20 PM Electronically Signed By:Octavia James LCSW
[2018-05-16] MEDS: LORazepam 2 MG/ML INJ IVP PRN ×2 (13:26→16:00)
--- NOTE | 2018-05-16 13:38 | HOSPPROG ---
Hospitalist Progress Note Assessment/Plan: 72yo F with metastatic breast cancer here with general decline in health found to be in multiorgan failure and hypotensive, now on comfort care. 1. Hypotension: Due to liver failure - Comfort care order set placed - Stopped IVF/pressors, antibiotics 2. Ventricular tachycardia: Noted on monitor. - Offered family to remove cardiac monitors, they actually wanted to keep them in place 3. Acute hepatic failure: Due to liver mets. 4. Acute kidney injury: Likely combo of obstruction, poor PO, possibly hepatorenal. - No longer monitoring 5. Malignant ascites: Has Brendon drain in place. Removed 300ml on arrival. 6. Thrombocytopenia: Initial concern for TMA but no schistos on smear. Suspect d /t chemotherapy. - Stopped chemotherapy 7. Coagulopathy: Related to liver dysfunction. Not bleeding presently. With normal fibrinogen and no schistos, unlikely DIC. 8. Metastatic breast cancer: Followed by Dr Bond. 9. Hyponatremia: Na 123. Hypovolemic. No longer monitoring. 10. SIRS: As above, likely due to cancer and less likely infection. Stopped antibiotics. Code: DNR/DNI Dispo: Remain inpatient. She is actively dying. Informed family of imminent passing. They are at peace. Had crystalizer come this morning. Declining palliative consult/spiritual care services. Ok for med/surg. Subjective: Family requested to stop pressors this morning once son arrived. Pressors off. Patient unarousable. Occasionally "jerking" per family but otherwise comfortable. Objective: Vital Signs Temp Pulse Resp BP Pulse Ox 36.0 C 87 13 86/57 L 90 L 05/15/18 18:20 05/16/18 04:00 05/16/18 04:00 05/16/18 04:00 05/16/18 04:00 Microbiology 05/15/18 17:50 Gram Stain - Final Peritoneal Fluid - Other Body Fluid Culture - Final Laboratory Results 05/16/18 04:35 05/16/18 04:35 05/15/18 05/16/18 05/17/18 05:59 05:59 05:59 Intake Total 100 Balance 100 PT 19.8 SEC (12.0-15.0) H 05/16/18 04:35 INR 1.67 (0.83-1.16) H 05/16/18 04:35 - Physical Exam Constitutional: no apparent distress Skin: warm Neurologic: other (unarousable) ICD10 Worksheet Patient Problems: Problems Problem Status Onset Acute kidney injury Acute Breast carcinoma Acute Dehydration Acute Osteoarthritis of left hip Acute
--- NOTE | 2018-05-16 15:05 | SOAPPROG ---
SOAP Progress Note Assessment/Plan: Assessment: This is a 72-year-old female with history of metastatic breast cancer. 1. Metastatic breast cancer: We had a long discussion with the family members and we are all in agreement to proceed with comfort measures only. She has multiorgan failure with no meaningful possibility of recovery. Her family has all discussed this in everyone is in agreement. She currently is in the active stages of passing away. 05/16/18 15:03 Subjective: Patient was made comfort care yesterday. Objective: Vital Signs Temp Pulse Resp BP Pulse Ox 36.0 C 87 13 86/57 L 90 L 05/15/18 18:20 05/16/18 04:00 05/16/18 04:00 05/16/18 04:00 05/16/18 04:00 Microbiology 05/15/18 17:50 Gram Stain - Final Peritoneal Fluid - Other Body Fluid Culture - Final Laboratory Results 05/16/18 04:35 05/16/18 04:35 05/15/18 05/16/18 05/17/18 05:59 05:59 05:59 Intake Total 100 Balance 100 PT 19.8 SEC (12.0-15.0) H 05/16/18 04:35 INR 1.67 (0.83-1.16) H 05/16/18 04:35 Unresponsive. Lying on her side. Family member surrounding her. ICD10 Worksheet Patient Problems: Problems Problem Status Onset Acute kidney injury Acute Breast carcinoma Acute Dehydration Acute Osteoarthritis of left hip Acute
[2018-05-17 01:14] VITALS: BP 48/27
--- NOTE | 2018-05-17 15:45 | PDDCSUM ---
Discharge Summary Discharge Summary: Date of Admission: 05/15/2018 Date of Discharge: 05/17/2018 Consultants: oncology Studies: CXR Disposition: while in hospital Discharge Diagnoses: 1. Acute on chronic hepatic failure 2. Acute kidney injury 3. Acute metabolic encephalopathy 4. Refractory hypotension 5. Malignant ascites with Brendon drain in place 6. Profound thrombocytopenia 7. Coagulopathy 8. Hyponatremia 9. Metastatic breast cancer Brief Hospital Course: 72yo F with metastatic breast cancer brought in by family due to general decline in health found to be in multiorgan failure and hypotensive. She had numerous, severe lab and vital sign abnormalities indicating multi-organ failure related to her metastatic disease. She was initially treated with IVF, vasopressors, and antibiotics. After further discussion with MDPOA/family, decision was made to pursue comfort measures only. She was made DNR/DNI. She passed peacefully with family at bedside. Dr Tello was the pronouncing physician.
== END 2018-05-17 01:22 | disposition expired | DRG 441 ==
LOC: F2N 13:50
PROVIDERS: ADMIT Internal Medicine; ATTEND Internal Medicine
DX: K72.00 Acute and subacute hepatic failure without coma (principal); C78.7 Secondary malignant neoplasm of liver and intrahepatic bile duct; G93.41 Metabolic encephalopathy; D68.4 Acquired coagulation factor deficiency; N17.9 Acute kidney failure, unspecified; C79.51 Secondary malignant neoplasm of bone; R18.0 Malignant ascites; E87.1 Hypo-osmolality and hyponatremia; D69.6 Thrombocytopenia, unspecified; E03.9 Hypothyroidism, unspecified; I95.9 Hypotension, unspecified; I10 Essential (primary) hypertension; Z85.3 Personal history of malignant neoplasm of breast; Z90.10 Acquired absence of unspecified breast and nipple; Z66 Do not resuscitate
CPT/HCPCS: 82435-PO; 82565-PO; 82947-PO; 83010-90; 84132-PO; 84295-PO; 84520-PO; 85014-ER; 96374; J2060; J2270; J2543; P9047